=== PATIENT | female | born 1975 | race Caucasian/White ===

== ENCOUNTER 2018-05-09 17:52 | Emergency (ER) | payer BC, SELFPAY ==
--- OUTSIDE RECORDS SUMMARY | 2018-05-09 17:55 | XMS REPORT ---
:1975 [facility] Address [address] [place] [address] Dr. Price [address] [place] [id number] Care Team Providers Name Role Phone Unavailable Unavailable Unavailable Payers Payer Name Policy Type Policy Number Effective Date Expiration Date Problems This patient has no known problems. Allergies, Adverse Reactions, Alerts Allergy Allergy Status Severity Reaction(s) Onset Inactive Treating Comments Name Type Date Date Clinician colt OSUNA Active MICHELLE 2017-03 00:00:0 0 Medications This patient has no known medications.
[2018-05-09 18:34] LABS: Urine Blood NEGATIVE (NEG); Urine Glucose NEGATIVE (NEG); Urine Protein 1+ (NEG); Urine Specific Gravity 1.025 (1.005-1.030); Urine pH 6.5 (5.0-7.0)
[2018-05-09] MEDS ORDERED: cloNIDine HCl 0.1 MG TAB ONE ×2 (19:06→19:11)
[2018-05-09] MEDS ORDERED: HYDROCODONE/APAP 5/325 MG TAB ONE (19:12)
[2018-05-09 19:18] LABS: Absolute Lymphocytes (CBC) 2.5 K/uL (0.7-4.9); Absolute Monocytes 0.7 K/uL (0.1-1.3); Absolute Neutrophil 6.1 K/uL (1.8-8.0); Basophils % 0.7 % (0-1.3); Eosinophils % 1.9 % (0-4.4); Hematocrit 26.8 % (36.0-45.0); Lymphocytes % 26.2 % (15.3-44.8); MPV 8.7 fL (7.6-11.3); Monocytes % 7.8 % (3.3-12.3)
[2018-05-09 19:31] LABS: ALT/SGPT 21 U/L (12-78); AST/SGOT 20 U/L (15-37); Albumin 3.5 g/dL (3.4-5.0); Alkaline Phosphatase 73 U/L (45-117); BUN Blood Urea Nitrogen 14 mg/dL (7-18); Bicarbonate 25 mmol/L (21-32); Bilirubin Total 0.3 mg/dL (0.2-1.0); Glucose Level 95 mg/dL (74-106); Potassium 4.4 mmol/L (3.5-5.1); Protein, Total 7.3 g/dL (6.4-8.2); Sodium Level 140 mmol/L (136-145)
--- NOTE | 2018-05-09 20:10 | ER ---
Nurse's Notes [facility] Name: Kari Ansari Age: 42 yrs Sex: Female : 1975 Arrival Date: 05/09/2018 Time: 17:55 Bed 23 Private MD: Diagnosis: Urinary tract infection, site not specified;Anemia Presentation: 05/09 17:59 Presenting complaint: Patient states: FERREIRA, back pain, urinary frequency for 2 days. la1 Transition of care: patient was not received from another setting of care. Onset of symptoms was May 07, 2018. Risk Assessment: Do you want to hurt yourself or someone else? Patient reports no desire to harm self or others. Initial Sepsis Screen: Does the patient meet any 2 criteria? No. Patient's initial sepsis screen is negative. Does the patient have a suspected source of infection? No. Patient's initial sepsis screen is negative. Care prior to arrival: None. 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 - Social history:: Smoking status: Patient/guardian denies using tobacco. - Ebola Screening: : No symptoms or risks identified at this time. Screenin:13 Abuse screen: Denies threats or abuse. Denies injuries from another. Nutritional aj1 screening: No deficits noted. Tuberculosis screening: No symptoms or risk factors identified. 20:49 Fall Risk None identified. aj1 Assessment: 18:13 General: Appears in no apparent distress. uncomfortable, Behavior is calm, cooperative, aj1 appropriate for age. Pain: Complains of pain in forehead and low back area Pain does not radiate. Pain currently is 8 out of 10 on a pain scale. Quality of pain is described as aching. Neuro: Level of Consciousness is awake, alert, obeys commands, Oriented to person, place, time, situation. Cardiovascular: Patient's skin is warm and dry. Respiratory: Airway is patent Respiratory effort is even, unlabored, Respiratory pattern is regular, symmetrical. GI: No signs and/or symptoms were reported involving the gastrointestinal system. : Reports burning with urination, urinary frequency. EENT: No signs and/or symptoms were reported regarding the EENT system. Derm: No signs and/or symptoms reported regarding the dermatologic system. Skin is pink, warm \T\ dry. normal. Musculoskeletal: No signs and/or symptoms reported regarding the musculoskeletal system. Circulation, motion, and sensation intact. 19:00 Reassessment: Patient states that the pain in her lower back is getting worse. Notified aj1 MARIE Durán, Order recieved. 19:18 Reassessment: Patient appears in no apparent distress at this time. No changes from aj1 previously documented assessment. Patient and/or family updated on plan of care and expected duration. Pain level reassessed. Patient is alert, oriented x 3, equal unlabored respirations, skin warm/dry/pink. 20:25 Reassessment: Patient states that she is concerned about her blood levels and she would aj like to speak with Jordon again about her results. Notified MARIE Durán of patient request. 20:30 Reassessment: MARIE Durán at bedside Patient denies pain at this time. aj Vital Signs: 18:00 BP 174 / 103; Pulse 100; Resp 18; Temp 97.4; Pulse Ox 98% on R/A; Weight 99.79 kg; la1 Height 5 ft. 7 in. (170.18 cm); 19:18 BP 149 / 93; Pulse 88; Resp 18; Pulse Ox 98% on R/A; aj1 20:30 BP 159 / 97; Pulse 80; Resp 18; Pulse Ox 100% on R/A; aj1 18:00 Body Mass Index 34.46 (99.79 kg, 170.18 cm) pa1 ED Course: 17:55 Patient arrived in ED. mr 17:59 Triage completed. la1 18:01 Arm band placed on left wrist. la1 18:03 Danette Davis, SIENNA is Primary Nurse. aj1 18:05 Jordon Joyce PA is PHCP. [facility] 18:05 Adrián Beckford MD is Attending Physician. [facility] 18:13 Patient has correct armband on for positive identification. Bed in low position. Call aj light in reach. 18:13 No provider procedures requiring assistance completed. aj1 19:22 Notified Nurse Practitioner and/or Physician Impression Printer of a critical lab result(s), fc hemoglobin of 7.9. 20:49 Patient did not have IV access during this emergency room visit. aj1 Administered Medications: 19:00 Drug: cloNIDine 0.1 mg Route: PO; aj1 20:31 Follow up: Response: No adverse reaction aj1 19:09 Drug: [place] 5 mg-325 mg 1 tabs Route: PO; aj1 20:31 Follow up: Response: No adverse reaction aj1 Outcome: 20:10 Discharge ordered by . romulo 20:49 Discharged to home ambulatory. aj1 20:49 Condition: good 20:49 Discharge instructions given to patient, family, Instructed on discharge instructions, follow up and referral plans. medication usage, Demonstrated understanding of instructions, follow-up care, medications, Prescriptions given X 1. 20:49 Patient left the ED. aj1 Signatures: Danette Davis RN RN aj1 Jordon Joyce PA PA jmm Rivera, Mary mr Jennifer Danielson RN RN Kimani Bartholomew RN RN la1
--- NOTE | 2018-05-09 20:11 | EDPHYS ---
Physician Documentation [facility] Name: Kari Ansari Age: 42 yrs Sex: Female : 1975 Arrival Date: 05/09/2018 Time: 17:55 Bed 23 Private MD: ED Physician Adrián Beckford HPI: 05/09 18:16 This 42 yrs old Female presents to ER via Ambulatory with complaints of Back jmm Pain, High Blood Pressure. 18:16 The patient presents with pain that is acute, with no known mechanism of injury. Onset: jmm The symptoms/episode began/occurred gradually, 2 day(s) ago. The pain does not radiate. Associated signs and symptoms: Pertinent positives: dysuria. This is a 42 year old female with a history of anemia, hypertension presents to the ED with complaints of a frontal headache, elevated blood pressure, low back pain and painful urination beginning approx 2 days ago. Patient denies fever. The patient states the headache is similar in character to previous headaches with elevated blood pressure. Patient is currently taking losartan and clonidine for htn. Patient denies chest pain, abdominal pain, shortness of breath. . 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 - Social history:: Smoking status: Patient/guardian denies using tobacco. - Ebola Screening: : No symptoms or risks identified at this time. ROS: 18:16 Constitutional: Negative for fever, chills, and weight loss, Cardiovascular: Negative jmm for chest pain, palpitations, and edema, Respiratory: Negative for shortness of breath, cough, wheezing, and pleuritic chest pain, Abdomen/GI: Negative for abdominal pain, nausea, vomiting, diarrhea, and constipation. 18:16 Back: Positive for pain at rest. 18:16 Neuro: Positive for headache. 18:16 All other systems are negative. Exam: 18:16 Constitutional: This is a well developed, well nourished patient who is awake, alert, jmm and in no acute distress. Head/Face: atraumatic. Eyes: EOMI, no conjunctival erythema appreciated ENT: Moist Mucus Membranes Neck: Trachea midline, Supple Chest/axilla: Normal chest wall appearance and motion. 18:16 Abdomen/GI: Non distended, soft Back: Normal ROM 18:16 Cardiovascular: Rate: normal, Rhythm: regular. 18:16 Respiratory: the patient does not display signs of respiratory distress, Respirations: normal. 18:16 Neuro: Orientation: is normal, Mentation: is normal, Memory: is normal, Cerebellar function: normal finger to nose testing, Motor: is normal. 18:16 Psych: Behavior/mood is pleasant, cooperative. Vital Signs: 18:00 BP 174 / 103; Pulse 100; Resp 18; Temp 97.4; Pulse Ox 98% on R/A; Weight 99.79 kg; la1 Height 5 ft. 7 in. (170.18 cm); 19:18 BP 149 / 93; Pulse 88; Resp 18; Pulse Ox 98% on R/A; aj1 20:30 BP 159 / 97; Pulse 80; Resp 18; Pulse Ox 100% on R/A; aj1 18:00 Body Mass Index 34.46 (99.79 kg, 170.18 cm) la1 MDM: 18:16 Patient medically screened. [facility] 20:08 Data reviewed: vital signs, nurses notes. Counseling: I had a detailed discussion with [facility] the patient and/or guardian regarding: the historical points, exam findings, and any diagnostic results supporting the discharge/admit diagnosis, lab results, the need for outpatient follow up, to return to the emergency department if symptoms worsen or persist or if there are any questions or concerns that arise at home. ED course: HGB is normal level per patient. Patient denies sob, weakness. Patient states she feels much better in the ED. I discussed with the patient the need to follow up with PCP regarding htn and anemia. FERREIRA is similar to previous episodes of htn, I do not suspect SAH at this time. . 05/09 18:17 Order name: CBC with Diff [facility] 05/09 18:17 Order name: CMP; Complete Time: 19:41 [facility] 05/09 18:26 Order name: Urine Dipstick--Ancillary (enter results) 05/09 18:26 Order name: Urine --Ancillary (enter results) 05/09 18:27 Order name: Troponin (emerg Dept Use Only); Complete Time: 19:41 [facility] 05/09 19:23 Order name: CBC Smear Scan [facility] 05/09 18:17 Order name: Urine Dipstick-Ancillary (obtain specimen); Complete Time: 18:22 [facility] 05/09 18:27 Order name: EKG - Nurse/Tech; Complete Time: 18:50 [facility] Administered Medications: 19:00 Drug: cloNIDine 0.1 mg Route: PO; aj1 20:31 Follow up: Response: No adverse reaction [facility] 19:09 Drug: [place] 5 mg-325 mg 1 tabs Route: PO; aj1 20:31 Follow up: Response: No adverse reaction [facility] Disposition: 05/09/18 20:10 Discharged to Home. Impression: Urinary tract infection, site not specified, Anemia. - Condition is Stable. - Discharge Instructions: Anemia, Nonspecific, Urinary Tract Infection, Adult. - Prescriptions for Keflex 500 mg Oral Capsule - take 1 capsule by ORAL route every 12 hours for 10 days; 20 capsule. - Medication Reconciliation Form, Thank You Letter, Antibiotic Education, Prescription Opioid Use form. - Follow up: Private Physician; When: 2 - 3 days; Reason: Recheck today's complaints, Continuance of care, Re-evaluation by your physician. Addendum: 05/11/2018 20:00 Co-signature as Attending Physician, Adráin Beckford MD. r n Signatures: Dispatcher [employer] [facility] Danette Davis RN RN aj1 Jordon Joyce PA PA [facility] Adrián Beckford MD MD rn Attema, Lee RN RN la1 Corrections: (The following items were deleted from the chart) 05/09 20:49 20:10 05/09/2018 20:10 Discharged to Home. Impression: Urinary tract infection, site aj1 not specified; Anemia. Condition is Stable. Forms are Medication Reconciliation Form, Thank You Letter, Antibiotic Education, Prescription Opioid Use. Follow up: Private Physician; When: 2 - 3 days; Reason: Recheck today's complaints, Continuance of care, Re-evaluation by your physician. [facility]
[2018-05-09 21:30] LABS: Urine White Blood Cell Casts OK
[2018-05-09 21:31] LABS: Platelet Estimate ADEQ
[2018-05-09 21:32] LABS: Anisocytosis 1+; Blood Morphology Comment NOTED (NOT SEEN); Hypochromasia 2+; Ovalocytes 1+
--- NOTE | 2018-05-10 20:52 | EKG ---
Test Date: 2018-05-09 Test Time: 18:43:53 Game Warden: THIEN MEASUREMENT RESULTS: Intervals: Rate: 89 AZ: 144 QRSD: 86 QT: 362 QTc: 440 Williams: P: 21 AZ: 144 QRS: 4 T: 56 INTERPRETIVE STATEMENTS: Normal sinus rhythm Normal ECG No previous ECG available for comparison Electronically Signed On 05-10-18 20:48:17 CHANGE MANAGEMENT MANAGER by Yoni Chew
== END 2018-05-09 20:49 | disposition home or self-care (01) ==
LOC: ER 17:52
DX: N39.0 Urinary tract infection, site not specified (principal); D64.9 Anemia, unspecified; I10 Essential (primary) hypertension; Z91.048 Other nonmedicinal substance allergy status
CPT/HCPCS: 36415; 80053; 81003; 81025; 84484; 85025; 93005; 99283

== ENCOUNTER 2018-05-15 20:58 | Emergency (ER) | payer SELFPAY ==
--- OUTSIDE RECORDS SUMMARY | 2018-05-15 20:59 | XMS REPORT ---
:1975 [facility] Address [address] [place] [address] Dr. Price [address] [place] [address] Care Team Providers Name Role Phone Unavailable [...]
[2018-05-15] MEDS ORDERED: LABETALOL 20 MG/4ML SYRINGE IV ONE (21:43)
[2018-05-15 22:09] LABS: Protime INR 0.97
[2018-05-15 22:13] LABS: Absolute Lymphocytes (CBC) 2.6 K/uL (0.7-4.9); Absolute Monocytes 0.5 K/uL (0.1-1.3); Absolute Neutrophil 4.7 K/uL (1.8-8.0); Basophils % 0.6 % (0-1.3); Eosinophils % 1.6 % (0-4.4); Hematocrit 25.7 % (36.0-45.0); Lymphocytes % 32.2 % (15.3-44.8); MPV 7.7 fL (7.6-11.3); Monocytes % 6.3 % (3.3-12.3); RBC Red Blood Cell Count 4.23 M/uL (3.86-4.86)
[2018-05-15 22:16] LABS: ALT/SGPT 20 U/L (12-78); AST/SGOT 16 U/L (15-37); Albumin 3.7 g/dL (3.4-5.0); Alkaline Phosphatase 65 U/L (45-117); BUN Blood Urea Nitrogen 12 mg/dL (7-18); Bicarbonate 25 mmol/L (21-32); Bilirubin Direct 0.1 mg/dL (0-0.2); Bilirubin Total 0.3 mg/dL (0.2-1.0); Glucose Level 90 mg/dL (74-106); Magnesium 1.9 mg/dL (1.8-2.4); NT PRO-BNP 90 pg/mL (<125); Potassium 4.5 mmol/L (3.5-5.1); Protein, Total 7.7 g/dL (6.4-8.2); Sodium Level 141 mmol/L (136-145); Troponin (Emerg Dept Use Only) < 0.02 ng/mL (0.0-0.045)
[2018-05-15] MEDS ORDERED: KETOROLAC 30 MG/ML INJ ONE (22:30)
[2018-05-15 23:11] LABS: Anisocytosis 1+; Blood Morphology Comment NOTED (NOT SEEN); Hypochromasia 1+; Platelet Estimate INCR; Urine White Blood Cell Casts OK
[2018-05-15] MEDS ORDERED: DIPHENHYDRAMINE 50 MG/ML VIAL ONE (23:20)
[2018-05-15] MEDS ORDERED: ACETAMINOPHEN 325 MG TABLET ONE (23:20)
[2018-05-15] MEDS ORDERED: NA CHLORIDE 0.9% 250 ML ONE (23:31)
--- NOTE | 2018-05-16 00:56 | EDPHYS ---
Physician Documentation [facility] Name: Kari Ansari Age: 42 yrs Sex: Female : 1975 Arrival Date: 05/15/2018 Time: 20:59 Bed 28 Private MD: Rc Taylor ED Physician Pradeep King HPI: 05/15 21:39 This 42 yrs old Female presents to ER via Ambulatory with complaints of jr8 Syncope. 21:39 The patient has experienced syncope. Onset: The symptoms/episode began/occurred jr8 acutely, today. Duration: This was a single episode. Context: the episode(s) was witnessed, by family, occurred outdoors, occurred while the patient was standing, Just prior to the episode the patient experienced dizziness. Associated injury: Head/face: Back: pain. Associated signs and symptoms: The patient has no apparent associated signs or symptoms. Current symptoms: Currently, the patient is not experiencing any symptoms, the patient feels back to baseline, no decreased level of consciousness, no confusion, no dysphasia, no headache, no paralysis, no visual changes. The patient has not experienced similar symptoms in the past. The patient has been recently seen by a physician:. Patient with history of anemia. Stated that her hemoglobin had been decreasing over the past week. Last draw a few days ago showed a Hgb of 7.4. While walking at store became dizzy and passed out. Pain to head and low back. No longer dizzy but feels fatigued. Denies any other symptoms . 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 - Social history:: Smoking status: Patient/guardian denies using tobacco. - Ebola Screening: : No symptoms or risks identified at this time. ROS: 21:39 Eyes: Negative for injury, pain, redness, and discharge, ENT: Negative for injury, jr8 pain, and discharge, Neck: Negative for injury, pain, and swelling, Cardiovascular: Negative for chest pain, palpitations, and edema, Respiratory: Negative for shortness of breath, cough, wheezing, and pleuritic chest pain, Abdomen/GI: Negative for abdominal pain, nausea, vomiting, diarrhea, and constipation, Back: Negative for injury and pain, MS/Extremity: Negative for injury and deformity, Skin: Negative for injury, rash, and discoloration. 21:39 Constitutional: Positive for fatigue. 21:39 Neuro: Positive for dizziness, headache, loss of consciousness, syncope. Exam: 21:39 Eyes: Pupils equal round and reactive to light, extra-ocular motions intact. Lids and jr8 lashes normal. Conjunctiva and sclera are non-icteric and not injected. Cornea within normal limits. Periorbital areas with no swelling, redness, or edema. ENT: Nares patent. No nasal discharge, no septal abnormalities noted. Tympanic membranes are normal and external auditory canals are clear. Oropharynx with no redness, swelling, or masses, exudates, or evidence of obstruction, uvula midline. Mucous membranes moist. Neck: Trachea midline, no thyromegaly or masses palpated, and no cervical lymphadenopathy. Supple, full range of motion without nuchal rigidity, or vertebral point tenderness. No Meningismus. Cardiovascular: Regular rate and rhythm with a normal S1 and S2. No gallops, murmurs, or rubs. Normal PMI, no JVD. No pulse deficits. Respiratory: Lungs have equal breath sounds bilaterally, clear to auscultation and percussion. No rales, rhonchi or wheezes noted. No increased work of breathing, no retractions or nasal flaring. Abdomen/GI: Soft, non-tender, with normal bowel sounds. No distension or tympany. No guarding or rebound. No evidence of tenderness throughout. Back: No spinal tenderness. No costovertebral tenderness. Full range of motion. Skin: Warm, dry with normal turgor. Normal color with no rashes, no lesions, and no evidence of cellulitis. MS/ Extremity: Pulses equal, no cyanosis. Neurovascular intact. Full, normal range of motion. Neuro: Awake and alert, GCS 15, oriented to person, place, time, and situation. Cranial nerves II-XII grossly intact. Motor strength 5/5 in all extremities. Sensory grossly intact. Cerebellar exam normal. Normal gait. Vital Signs: 21:03 BP 199 / 105; Pulse 103; Resp 18; Temp 97.4; Pulse Ox 98% on R/A; Weight 99.79 kg; la1 Height 5 ft. 7 in. (170.18 cm); 21:45 BP 175 / 95; Pulse 98; Resp 18; Pulse Ox 100% on R/A; Pain 0/10; mg2 22:25 BP 177 / 91; Pulse 72; Resp 18; Pulse Ox 100% on R/A; Pain 5/10; mg2 23:00 BP 144 / 78; Pulse 80; Resp 18; Pulse Ox 100% on R/A; Pain 0/10; mg2 23:00 BP 161 / 84; Pulse 72; Resp 18; Pulse Ox 100% on R/A; Pain 0/10; mg2 02 00:38 BP 130 / 51; Pulse 75; Resp 18; Pulse Ox 100% on R/A; Pain 5/10; mg2 05/15 21:03 Body Mass Index 34.46 (99.79 kg, 170.18 cm) la1 MDM: 05/15 21:04 Patient medically screened. jr8 22:38 Data reviewed: vital signs, nurses notes, lab test result(s), EKG, radiologic studies, [facility] CT scan, plain films, and as a result, I will continue to observe the patient. Data interpreted: Pulse oximetry: on room air is 100 %. Interpretation: normal. Counseling: I had a detailed discussion with the patient and/or guardian regarding: the historical points, exam findings, and any diagnostic results supporting the discharge/admit diagnosis, lab results, radiology results, the need for outpatient follow up, a family practitioner, to return to the emergency department if symptoms worsen or persist or if there are any questions or concerns that arise at home. 05/15 21:30 Order name: Basic Metabolic Panel; Complete Time: 22:19 05/15 21:30 Order name: CBC with Diff; Complete Time: 23:24 05/15 21:30 Order name: LFT's; Complete Time: 22:19 05/15 21:30 Order name: Magnesium; Complete Time: 22:19 05/15 21:30 Order name: NT PRO-BNP; Complete Time: 22:19 05/15 21:30 Order name: PT-INR; Complete Time: 22:13 05/15 21:30 Order name: Troponin (emerg Dept Use Only); Complete Time: 22:19 05/15 21:30 Order name: XRAY Chest (1 view) 05/15 21:30 Order name: TS [facility] 05/15 21:30 Order name: CT Head Brain wo Cont [facility] 05/15 21:30 Order name: Lumbar Spine (3 Views) XRAY [facility] 05/15 22:35 Order name: ABO/RH no charge; Complete Time: 22:41 [facility] 05/15 22:44 Order name: Packed RBC Leukored -1 [facility] 05/15 23:11 Order name: CBC Smear Scan; Complete Time: 23:24 [facility] 05/15 21:30 Order name: EKG; Complete Time: 21:31 [facility] 05/15 21:30 Order name: Cardiac monitoring; Complete Time: 21:50 [facility] 05/15 21:30 Order name: EKG - Nurse/Tech; Complete Time: 22:27 [facility] 05/15 21:30 Order name: IV Saline Lock; Complete Time: :50 [facility] 05/15 21:30 Order name: Labs collected and sent; Complete Time: 21:50 [facility] 05/15 21:30 Order name: O2 Per Protocol; Complete Time: :51 [facility] 05/15 21:30 Order name: O2 Sat Monitoring; Complete Time: :51 [facility] 05/15 22:42 Order name: Misc. Order: Pre medicate prior to transfusion; Complete Time: 23:28 jr Administered Medications: 21:50 Drug: Labetalol 20 mg Route: IVP; Infused Over: 2 mins; Site: left antecubital; mg2 22:25 Follow up: Response: No adverse reaction; Blood pressure is lowered mg2 22:25 Drug: TORadol 30 mg Route: IVP; Site: left antecubital; mg2 23:00 Follow up: Response: No adverse reaction; Marked relief of symptoms mg2 05/16 01:00 Drug: fentaNYL (PF) 50 mcg Route: IVP; Site: left antecubital; mg2 Point of Care Testin:13 bgl- not done mg2 Ranges: Critical Glucose Levels:Adult <50 mg/dl or >400 mg/dl <40 mg/dl or >180 mg/dl Disposition: 20:16 Co-signature as Attending Physician, Pradeep King MD. Disposition: 05/16/18 00:55 Discharged to Home. Impression: Syncope and collapse, Iron deficiency anemia. - Condition is Stable. - Discharge Instructions: Anemia, Nonspecific, Syncope, Iron Deficiency Anemia, Adult, [id number]. - Prescriptions for Ferrous Sulfate 325 mg (65 mg Iron) Oral Tablet - take 1 tablet by ORAL route every 8 hours; 90 tablet. - Medication Reconciliation Form, Thank You Letter, Antibiotic Education, Prescription Opioid Use form. - Follow up: Rc Taylor MD; When: 1 - 2 days; Reason: Recheck today's complaints, Continuance of care, Re-evaluation by your physician. - Problem is new. - Symptoms have improved. Signatures: Dispatcher [employer] EDMS Conrad Yusuf PA PA jr8 Kimani Bartholomew RN RN la1 Pradeep King MD MD gs Renard Santiago RN RN mg2 Corrections: (The following items were deleted from the chart) 01:09 00:55 05/16/2018 00:55 Discharged to Home. Impression: Syncope and collapse; Iron mg2 deficiency anemia. Condition is Stable. Forms are Medication Reconciliation Form, Thank You Letter, Antibiotic Education, Prescription Opioid Use. Follow up: Rc Taylor; When: 1 - 2 days; Reason: Recheck today's complaints, Continuance of care, Re-evaluation by your physician. Problem is new. Symptoms have improved. jr8
--- NOTE | 2018-05-16 00:56 | ER ---
Nurse's Notes [facility] Name: Kari Ansari Age: 42 yrs Sex: Female : 1975 Arrival Date: 05/15/2018 Time: 20:59 Bed 28 Private MD: Rc Taylor Diagnosis: Syncope and collapse;Iron deficiency anemia Presentation: 05/15 21:02 Presenting complaint: Patient states: I was carrying groceries in and I got dizzy and la1 passed out. My lower back and the back of my head hurt. Last time was here I was anemic. Transition of care: patient was not received from another setting of care. Onset of symptoms was May 15, 2018. Risk Assessment: Do you want to hurt yourself or someone else? Patient reports no desire to harm self or others. Initial Sepsis Screen: Does the patient meet any 2 criteria? No. Patient's initial sepsis screen is negative. Does the patient have a suspected source of infection? No. Patient's initial sepsis screen is negative. Care prior to arrival: None. 21:02 Method Of Arrival: Ambulatory la1 21:02 Acuity: LASHAUN 3 la1 AIX SYSTEM ADMINISTRATOR: 05/16 00:13 lmp unknown mg2 Historical: - Allergies: 05/15 21:03 Iodine; la1 - PMHx: 21:03 Anemia; Hypertension; la1 - Immunization history:: Adult Immunizations up to date. - Social history:: Smoking status: Patient/guardian denies using tobacco. - Ebola Screening: : No symptoms or risks identified at this time. Screenin:53 Abuse screen: Denies threats or abuse. Denies injuries from another. Nutritional mg2 screening: No deficits noted. Tuberculosis screening: No symptoms or risk factors identified. Fall Risk IV access (20 points). Assessment: 21:51 General: Appears in no apparent distress. comfortable, Behavior is calm, cooperative. mg2 Pain: Denies pain. Neuro: Level of Consciousness is awake, alert, obeys commands, Oriented to person, place, time, situation. Neuro: Reports a syncopal episode. Cardiovascular: Capillary refill < 3 seconds Patient's skin is warm and dry. Respiratory: Airway is patent Respiratory effort is even, unlabored, Respiratory pattern is regular, symmetrical. GI: No signs and/or symptoms were reported involving the gastrointestinal system. : No signs and/or symptoms were reported regarding the genitourinary system. EENT: No signs and/or symptoms were reported regarding the EENT system. Derm: Skin is intact, is healthy with good turgor, Skin is pink, warm \T\ dry. normal. Musculoskeletal: Circulation, motion, and sensation intact. Capillary refill < 3 seconds. 23:25 Cardiovascular: Rhythm is sinus rhythm. mg2 23:33 Reassessment: patient signed the informed consent for blood transfusion. patient mg2 pre-medicated with benadryl and tylenol. 23:40 Reassessment: blood transfusion started. mg2 Vital Signs: 21:03 BP 199 / 105; Pulse 103; Resp 18; Temp 97.4; Pulse Ox 98% on R/A; Weight 99.79 kg; la1 Height 5 ft. 7 in. (170.18 cm); 21:45 BP 175 / 95; Pulse 98; Resp 18; Pulse Ox 100% on R/A; Pain 0/10; mg2 22:25 BP 177 / 91; Pulse 72; Resp 18; Pulse Ox 100% on R/A; Pain 5/10; mg2 23:00 BP 144 / 78; Pulse 80; Resp 18; Pulse Ox 100% on R/A; Pain 0/10; mg2 23:00 BP 161 / 84; Pulse 72; Resp 18; Pulse Ox 100% on R/A; Pain 0/10; mg2 02/03 00:38 BP 130 / 51; Pulse 75; Resp 18; Pulse Ox 100% on R/A; Pain 5/10; mg2 02/02 21:03 Body Mass Index 34.46 (99.79 kg, 170.18 cm) la1 ED Course: 02 20:59 Patient arrived in ED. am2 20:59 Rc Taylor MD is Private Physician. am2 21:02 Triage completed. la1 21:03 Arm band placed on left wrist. la1 21:04 Conrad Yusuf PA is PHCP. jr8 21:04 Pradeep King MD is Attending Physician. jr8 21:17 Renard Santiago, SIENNA is Primary Nurse. mg2 21:53 Patient has correct armband on for positive identification. broadcast systems engineer on. Pulse mg2 ox on. NIBP on. Door closed. Warm blanket given. 21:53 No provider procedures requiring assistance completed. Inserted saline lock: 20 gauge mg2 in left antecubital area, using aseptic technique. Blood collected. 22:08 CT Head Brain wo Cont In Process Unspecified. EDMS 22:12 XRAY Chest (1 view) In Process Unspecified. EDMS 22:12 Lumbar Spine (3 Views) XRAY In Process Unspecified. EDMS 22:25 Notified ED physician of a critical lab result(s). HGB of 7.6 Conrad SALAZAR notified. liza 05/16 00:54 Rc Taylor MD is Referral Physician. jr8 01:08 IV discontinued, intact, bleeding controlled, No redness/swelling at site. Pressure mg2 dressing applied. Administered Medications: 05/15 21:50 Drug: Labetalol 20 mg Route: IVP; Infused Over: 2 mins; Site: left antecubital; mg2 22:25 Follow up: Response: No adverse reaction; Blood pressure is lowered mg2 22:25 Drug: TORadol 30 mg Route: IVP; Site: left antecubital; mg2 23:00 Follow up: Response: No adverse reaction; Marked relief of symptoms mg2 05/16 01:00 Drug: fentaNYL (PF) 50 mcg Route: IVP; Site: left antecubital; mg2 Medication: 05/15 23:58 Blood products: PRBCs X 1 unit given. mg2 Point of Care Testin/03 00:13 bgl- not done mg2 Ranges: Outcome: 00:55 Discharge ordered by . jr8 01:08 Discharged to home ambulatory, with family. mg2 01:08 Condition: stable 01:08 Discharge instructions given to patient, family, Instructed on discharge instructions, follow up and referral plans. medication usage, Demonstrated understanding of instructions, follow-up care, medications, Prescriptions given X 1. 01:09 Patient left the ED. mg2 Signatures: Dispatcher [employer] EDMS Sushila Ramírez RN RN bb Roszak, Josh, PA PA jr8 Kimani Bartholomew RN RN la1 Edwina Pratt Michele, RN RN mg2 Corrections: (The following items were deleted from the chart) 05/15 21:10 21:03 BP 199 / 105; Pulse 10bpm; Resp 18bpm; Pulse Ox 98% RA; Temp 97.4F; 99.79 kg; la1 Height 5 ft. 7 in.; BMI: 34.4; la1
[2018-05-16] MEDS ORDERED: FENTANYL CITR 100 MCG/2 ML ONE (01:05)
--- NOTE | 2018-05-16 06:19 | EKG ---
Test Date: 2018-05-15 Test Time: 22:11:00 Application Designer: MEASUREMENT RESULTS: Intervals: Rate: 71 IN: 152 QRSD: 88 QT: 392 QTc: 425 Webster: P: 30 IN: 152 QRS: 20 T: 77 INTERPRETIVE STATEMENTS: Normal sinus rhythm Normal ECG Compared to ECG 05/09/2018 18:43:53 no significant change from previous ECG Electronically Signed On 05-16-18 06:14:35 TREATER HELPER by Sunday Castillo
--- NOTE | 2018-05-16 10:48 | RAD REPORT ---
EXAM DESCRIPTION: RAD - Chest Single View - 05/15/2018 10:12 pm CLINICAL HISTORY: syncope Chest pain. COMPARISON: No comparisons FINDINGS: Portable technique limits examination quality. The lungs are grossly clear. The heart is normal in size. No displaced fractures. IMPRESSION: No acute intrathoracic process suspected.
--- NOTE | 2018-05-16 10:57 | RAD REPORT ---
EXAM DESCRIPTION: RAD - Lumbar Spine 3 Views - 05/15/2018 10:12 pm CLINICAL HISTORY: PAIN Radiculopathy COMPARISON: No comparisons FINDINGS: Vertebral body heights appear maintained. No compression fracture noted. Moderate disc thi nning with endplate osteophytes present at L5-S1. No spondylolysis or spondylolisthesis. Cholecystect luna clips. IUD noted. IMPRESSION: Moderate L5-S1 spondylosis.
--- NOTE | 2018-05-17 11:31 | RAD REPORT ---
EXAM DESCRIPTION: Head Brain Wo Cont. CLINICAL HISTORY: 42 years Female Syncope, fall injury. COMPARISON: None. TECHNIQUE: Images obtained in axial, sagittal, and coronal planes. This exam was performed according to our departmental dose-optimization program, which includes autom ated exposure control, adjustment of the mA and/or kV according to patient size and/or less of iterat troy reconstruction technique. FINDINGS: Ventricular system appears normal. No abnormal areas of increased or decreased attenuation are seen involving the brain parenchyma. No e xtra-axial fluid collections are noted. No evidence for skull fracture. Symmetric aeration mastoid air cells bilaterally. Unremarkable parana deni sinuses. IMPRESSION: No acute intracranial abnormality. No evidence for hemorrhage, mass lesion or large acut e infarction. Electronically signed by: Jenniffer Macdonald MD 05/15/2018 10:12 PM HOUSE DESIGNER Due to temporary technical issues with the PACS/Fluency reporting system, reports are being signed by the in house radiologist as a courtesy to ensure prompt reporting. The interpreting radiologist is f ully responsible for the content of the report.
== END 2018-05-16 01:09 | disposition home or self-care (01) ==
LOC: ER 20:58
PROC: 30233N1 Transfusion of Nonautologous Red Blood Cells into Peripheral Vein, Percutaneous Approach (ICD-10-PCS; principal; 2018-05-16)
DX: D50.9 Iron deficiency anemia, unspecified (principal); I10 Essential (primary) hypertension; Z91.048 Other nonmedicinal substance allergy status
CPT/HCPCS: 36415; 36430; 70450; 71045; 72100; 80048; 80076; 83735; 83880; 84484; 85025; 85610; 86850; 86900; 86901; 93005; 96374; 96375; 99285; J3010; P9016

== ENCOUNTER 2020-08-06 05:15 | Inpatient (IN) | payer SELFPAY ==
--- OUTSIDE RECORDS SUMMARY | 2020-08-06 05:18 | XMS REPORT | Continuity of Care Document ---
:1975 Author Organization [facility] t Address [address] [place] [address] [address] [place] [address] Care Team Providers Name Role Phone Unavailable Unavailable Unavailable Payers Payer Name Policy Type Policy Number Effective Date Expiration Date S ource Problems This patient has no known problems. Allergies, Adverse Reactions, Alerts Allergy Allergy Status Severity Reaction(s) Onset Inactive Treating Comm ents Source Name Type Date Date Clinician iodine DA Active SV 2016- [facility] 05-[address] [facility] 00:00: d 00 [facility] Medications This patient has no known medications. Procedures This patient has no known procedures. Results This patient has no known results.
[2020-08-06 05:54] LABS: Urine Blood Negative (Negative); Urine Glucose Negative (Negative); Urine Protein Negative (Negative); Urine Specific Gravity 1.025 (1.005-1.030)
[2020-08-06] MEDS ORDERED: MORPHINE 4 MG/ML SYR ONE (06:05)
[2020-08-06] MEDS ORDERED: NA CHLORIDE 0.9% 1,000 ML ONE (06:05)
[2020-08-06] MEDS ORDERED: ONDANSETRON 4 MG/2 ML VIAL ONE ×3 (06:05→14:31)
[2020-08-06 06:11] LABS: ALT/SGPT 56 U/L (12-78); AST/SGOT 59 U/L (15-37); Albumin 3.5 g/dL (3.4-5.0); Alkaline Phosphatase 77 U/L (45-117); BUN Blood Urea Nitrogen 11 mg/dL (7-18); Bicarbonate 24 mmol/L (21-32); Bilirubin Direct 0.2 mg/dL (0-0.2); Bilirubin Total 0.4 mg/dL (0.2-1.0); Glucose Level 85 mg/dL (74-106); Lipase 80 U/L (73-393); Potassium 4.4 mmol/L (3.5-5.1); Protein, Total 7.2 g/dL (6.4-8.2); Sodium Level 142 mmol/L (136-145)
[2020-08-06 06:45] LABS: Absolute Lymphocytes (CBC) 1.2 K/uL (0.7-4.9); Basophils % 0.4 % (0-1.3); Hematocrit 24.2 % (36.0-45.0); Lymphocytes % 10.4 % (15.3-44.8); MPV 8.8 fL (7.6-11.3); RBC Red Blood Cell Count 3.92 M/uL (3.86-4.86)
--- NOTE | 2020-08-06 07:05 | ER ---
Nurse's Notes [facility] Name: Kari Ansari Age: 44 yrs Sex: Female : 1975 Arrival Date: 08/06/2020 Time: 05:18 Bed 5 Private MD: Diagnosis: Acute appendicitis Presentation: 08/06 05:25 Chief complaint: Patient states: she started having back pain then abdominal pain then bb she started vomiting repeatedly. Coronavirus screen: At this time, the client does not indicate any symptoms associated with coronavirus-19. Ebola Screen: No symptoms or risks identified at this time. Initial Sepsis Screen: Does the patient meet any 2 criteria? No. Patient's initial sepsis screen is negative. Does the patient have a suspected source of infection? No. Patient's initial sepsis screen is negative. Risk Assessment: Do you want to hurt yourself or someone else? Patient reports no desire to harm self or others. Onset of symptoms was August 06, 2020. 05:25 Method Of Arrival: Ambulatory bb 05:25 Acuity: LASHAUN 3 bb SAFETY FIRE BOSS: 05:28 LMP 05/2020 bb Historical: - Allergies: 05:28 Iodine; bb - Home Meds: 05:28 Ambien Oral [Active]; Alprazolam Oral [Active]; bb - PMHx: 05:28 Anemia; Hypertension; Anxiety; bb - PSHx: 05:28 Gastric Bypass; Cholecystectomy; bb - Immunization history:: Adult Immunizations up to date. - Social history:: Smoking status: Patient reports the use of cigarette tobacco products, denies chronic smoking, but will smoke occasionally. Screenin:39 Abuse screen: Denies threats or abuse. Denies injuries from another. Nutritional mg2 screening: No deficits noted. Tuberculosis screening: No symptoms or risk factors identified. Fall Risk IV access (20 points). Assessment: 05:39 General: Appears in no apparent distress. comfortable, Behavior is calm, cooperative. mg2 Pain: Complains of pain in back and abdomen. Neuro: Level of Consciousness is awake, alert, obeys commands, Oriented to person, place, time, situation. Cardiovascular: Capillary refill < 3 seconds Patient's skin is warm and dry. Respiratory: Airway is patent Respiratory effort is even, unlabored, Respiratory pattern is regular, symmetrical. GI: Reports vomiting. : Reports pain in lower back. EENT: No signs and/or symptoms were reported regarding the EENT system. Derm: Skin is intact, is healthy with good turgor, Skin is pink, warm \T\ dry. normal. Musculoskeletal: Circulation, motion, and sensation intact. Capillary refill < 3 seconds. 09:00 General: Appears in no apparent distress. comfortable, Behavior is calm, cooperative, jd3 appropriate for age. Pain: Complains of pain in abdomen Quality of pain is described as aching. Neuro: Level of Consciousness is awake, alert, obeys commands, Oriented to person, place, time, situation. Cardiovascular: Denies chest pain, Capillary refill < 3 seconds Patient's skin is warm and dry. Respiratory: Airway is patent Respiratory effort is even, unlabored, Respiratory pattern is regular, symmetrical, Denies cough, shortness of breath. GI: Abdomen is round non-distended, Bowel sounds present X 4 quads. Abd is soft and non tender X 4 quads. : No signs and/or symptoms were reported regarding the genitourinary system. EENT: No signs and/or symptoms were reported regarding the EENT system. Derm: Skin is intact, Skin is dry, Skin is normal, Skin temperature is warm. Musculoskeletal: Circulation, motion, and sensation intact. Range of motion: intact in all extremities. 09:02 Reassessment: Lab recollect obtained from existing IV site. 8 mL blood wasted prior to sr5 sample collection, flushed with 10mL NS afterwards. Pt awake and talkative, call light at bedside. 11:37 Reassessment: Patient appears in no apparent distress at this time. Patient and/or jd3 family updated on plan of care and expected duration. Pain level reassessed. Patient is alert, oriented x 3, equal unlabored respirations, skin warm/dry/pink. to surgery with OR nurse. Vital Signs: 05:25 BP 170 / 91; Pulse 79; Resp 18 S; Temp 97.7(TE); Pulse Ox 100% on R/A; Weight 80.74 kg bb (R); Height 5 ft. 6 in. (167.64 cm) (R); Pain 9/10; 09:02 BP 144 / 86; Pulse 81; Resp 16; Pulse Ox 99% ; ld1 09:44 BP 134 / 70; Pulse 73; Resp 17 S; Pulse Ox 99% on R/A; jd3 11:37 BP 152 / 82; Pulse 71; Resp 16 S; Pulse Ox 99% on R/A; jd3 05:25 Body Mass Index 28.73 (80.74 kg, 167.64 cm) bb ED Course: 05:18 Patient arrived in ED. bp1 05:27 Triage completed. bb 05:28 Arm band placed on Patient placed in an exam room, on a stretcher, on pulse oximetry. bb 05:29 Martin Philippe MD is Attending Physician. mh7 05:31 Renard Santiago, SIENNA is Primary Nurse. mg2 05:40 Patient has correct armband on for positive identification. mg2 05:40 No provider procedures requiring assistance completed. mg2 05:40 Missed attempt(s): 22 gauge in left forearm. Bleeding controlled, band aid applied, ds4 catheter tip intact. 05:55 Inserted saline lock: 22 gauge in left antecubital area, using aseptic technique. Blood mg2 collected. 06:15 CT Stone Protocol In Process Unspecified. EDMS 07:04 Rc Taylor MD is Hospitalizing Provider. mh7 11:59 Patient admitted, IV remains in place. jd3 Administered Medications: 05:56 Drug: Zofran (Ondansetron) 4 mg Route: IVP; Site: left antecubital; mg2 07:00 Follow up: Response: No adverse reaction jd3 05:57 Drug: NS 0.9% 1000 ml Route: IV; Rate: 1000 ml; Site: left antecubital; mg2 07:00 Follow up: Response: No adverse reaction; IV Status: Completed infusion; IV Intake: jd3 1000ml 05:57 Drug: morphine 4 mg Route: IVP; Site: left antecubital; mg2 07:00 Follow up: Response: No adverse reaction; RASS: Alert and Calm (0) jd3 07:46 Drug: Zosyn (piperacillin-tazobactam) 3.375 grams Route: IVPB; Infused Over: 60 mins; ld1 Site: left antecubital; 09:03 Follow up: IV Status: Completed infusion; IV Intake: 100ml sr5 07:47 Drug: Dilaudid (HYDROmorphone) 1 mg Route: IVP; Site: left antecubital; ld1 08:40 Follow up: Response: No adverse reaction; RASS: Alert and Calm (0) jd3 Intake: 07:00 IV: 1000ml; Total: 1000ml. jd3 09:03 IV: 100ml; Total: 1100ml. sr5 Outcome: 07:05 Decision to Hospitalize by Provider. [facility] 11:59 Admitted to OR accompanied by nurse, via wheelchair, room OR pre-op/day surgery. jd3 11:59 Condition: stable 11:59 Instructed on the need for admit, Demonstrated understanding of instructions. 11:59 Patient left the ED. j Signatures: Dispatcher [employer] EDSushila Reyes, RN RN bb Erick Lorenz ds4 Benson Figueroa RN RN sr5 Zach Astorga RN RN jd3 Renard Santiago RN RN mg2 Delmi Patiño Maurice, MD MD 7 Adeola Solomon RN RN ld1
--- NOTE | 2020-08-06 07:06 | EDPHYS ---
Physician Documentation [facility] Name: Kari Ansari Age: 44 yrs Sex: Female : 1975 Arrival Date: 08/06/2020 Time: 05:18 Bed 5 Private MD: ED Physician Martin Philippe HPI: 08/06 05:44 This 44 yrs old Female presents to ER via Ambulatory with complaints of Low mh7 Back Pain, Vomiting, Abdominal Pain. 05:44 The patient complains of pain in the left flank. The pain radiates to the left lower mh7 abdomen. Onset: The symptoms/episode began/occurred this morning, today. Modifying factors: The symptoms are alleviated by nothing. the symptoms are aggravated by nothing. Associated signs and symptoms: Pertinent positives: dysuria, nausea, vomiting, Pertinent negatives: diarrhea, dizziness, fever, urinary frequency, headache, hematuria, pain radiating to the lower extremities. Severity of pain: At its worst the pain was moderate today, in the emergency department the pain is unchanged. DRAWER IN: 05:28 LMP 05/2020 bb Historical: - Allergies: 05:28 Iodine; bb - Home Meds: 05:28 Ambien Oral [Active]; Alprazolam Oral [Active]; bb - PMHx: 05:28 Anemia; Hypertension; Anxiety; bb - PSHx: 05:28 Gastric Bypass; Cholecystectomy; bb - Immunization history:: Adult Immunizations up to date. - Social history:: Smoking status: Patient reports the use of cigarette tobacco products, denies chronic smoking, but will smoke occasionally. ROS: 05:44 Constitutional: Negative for fever, chills, and weight loss, Eyes: Negative for injury, mh7 pain, redness, and discharge, ENT: Negative for injury, pain, and discharge, Neck: Negative for injury, pain, and swelling, Cardiovascular: Negative for chest pain, palpitations, and edema, Respiratory: Negative for shortness of breath, cough, wheezing, and pleuritic chest pain, MS/Extremity: Negative for injury and deformity, Skin: Negative for injury, rash, and discoloration, Neuro: Negative for headache, weakness, numbness, tingling, and seizure, Psych: Negative for depression, anxiety, suicide ideation, homicidal ideation, and hallucinations, Allergy/Immunology: Negative for hives, rash, and allergies, Endocrine: Negative for neck swelling, polydipsia, polyuria, polyphagia, and marked weight changes, Hematologic/Lymphatic: Negative for swollen nodes, abnormal bleeding, and unusual bruising. Exam: 05:44 Constitutional: This is a well developed, well nourished patient who is awake, alert, mh7 and in no acute distress. Head/Face: Normocephalic, atraumatic. Eyes: Pupils equal round and reactive to light, extra-ocular motions intact. Lids and lashes normal. Conjunctiva and sclera are non-icteric and not injected. Cornea within normal limits. Periorbital areas with no swelling, redness, or edema. Neck: Trachea midline, no thyromegaly or masses palpated, and no cervical lymphadenopathy. Supple, full range of motion without nuchal rigidity, or vertebral point tenderness. No Meningismus. Chest/axilla: Normal chest wall appearance and motion. Nontender with no deformity. No lesions are appreciated. Cardiovascular: Regular rate and rhythm with a normal S1 and S2. No gallops, murmurs, or rubs. Normal PMI, no JVD. No pulse deficits. Respiratory: Lungs have equal breath sounds bilaterally, clear to auscultation and percussion. No rales, rhonchi or wheezes noted. No increased work of breathing, no retractions or nasal flaring. 05:44 Skin: Warm, dry with normal turgor. Normal color with no rashes, no lesions, and no evidence of cellulitis. MS/ Extremity: Pulses equal, no cyanosis. Neurovascular intact. Full, normal range of motion. Neuro: Awake and alert, GCS 15, oriented to person, place, time, and situation. Cranial nerves II-XII grossly intact. Motor strength 5/5 in all extremities. Sensory grossly intact. Cerebellar exam normal. Normal gait. Psych: Awake, alert, with orientation to person, place and time. Behavior, mood, and affect are within normal limits. 05:44 Abdomen/GI: Inspection: abdomen appears normal, Bowel sounds: normal, in all quadrants, Palpation: mild abdominal tenderness, in the left lower quadrant, mass, is not appreciated, rebound tenderness, is not appreciated, voluntary guarding, is not appreciated, involuntary guarding, is not appreciated, no appreciated organomegaly, Rectal exam: the exam is deferred, because of patient request, Indicators: McBurney's point is not tender, Garcia's sign is negative, Rovsing's sign is negative, Obturator sign is negative, Psoas sign is negative, Liver: no appreciated palpable abnormalities, Hernia: not appreciated. 05:44 Back: normal spinal alignment noted, CVA tenderness, that is mild, is noted on the left, vertebral tenderness, is not appreciated, muscle spasm, is not present. 07:20 Abdomen/GI: Palpation: moderate abdominal tenderness, in the right lower quadrant. [facility] 07:59 ECG was reviewed by the Attending Physician. [facility] Vital Signs: 05:25 BP 170 / 91; Pulse 79; Resp 18 S; Temp 97.7(TE); Pulse Ox 100% on R/A; Weight 80.74 kg bb (R); Height 5 ft. 6 in. (167.64 cm) (R); Pain 9/10; 09:02 BP 144 / 86; Pulse 81; Resp 16; Pulse Ox 99% ; ld1 09:44 BP 134 / 70; Pulse 73; Resp 17 S; Pulse Ox 99% on R/A; jd3 11:37 BP 152 / 82; Pulse 71; Resp 16 S; Pulse Ox 99% on R/A; jd3 05:25 Body Mass Index 28.73 (80.74 kg, 167.64 cm) bb MDM: 07:02 Differential diagnosis: nephrolithiasis, pyelonephritis, UTI, diverticulitis. Data [facility] reviewed: vital signs, nurses notes, lab test result(s), CBC, electrolytes, urinalysis, radiologic studies, CT scan. Data interpreted: Pulse oximetry: on room air is 100 %. Interpretation: normal. Counseling: I had a detailed discussion with the patient and/or guardian regarding: the historical points, exam findings, and any diagnostic results supporting the discharge/admit diagnosis, the presence of at least one elevated blood pressure reading (>120/80) during this emergency department visit, lab results, radiology results, the need for further work-up and treatment in the hospital. Response to treatment: the patient's symptoms have mildly improved after treatment. 07:05 Patient medically screened. 7 07:21 Physician consultation: Kemal Monique MD was called at 07:00. [facility] 08/06 05:31 Order name: Basic Metabolic Panel; Complete Time: 06:14 mg2 08/06 05:31 Order name: CBC with Diff [facility] 08/06 05:31 Order name: Hepatic Function; Complete Time: 06:14 [facility] 08/06 05:31 Order name: Lipase; Complete Time: 06:14 [facility] 08/06 05:54 Order name: Urine Dipstick-Ancillary; Complete Time: 06:09 [facility] 08/06 06:00 Order name: Urine --Ancillary (enter results) tt3 08/06 07:06 Order name: Type And Screen [facility] 08/06 07:06 Order name: Protime (+inr) [facility] 08/06 07:06 Order name: Ptt, Activated [facility] 08/06 08:15 Order name: COVID-19 : Document "Date of Symptom Onset" if Symptomatic. aa5 08/06 08:25 Order name: Manual Differential [facility] 08/06 05:31 Order name: IV Saline Lock; Complete Time: 05:58 [facility] 08/06 05:31 Order name: Labs collected and sent; Complete Time: 05:42 [facility] 08/06 05:43 Order name: Urine Dipstick-Ancillary (obtain specimen); Complete Time: 05:54 [facility] 08/06 05:43 Order name: Urine Test (obtain specimen); Complete Time: 05:54 [facility] 08/06 05:44 Order name: CT Stone Protocol [facility] 08/06 07:06 Order name: EKG - Nurse/Tech; Complete Time: 07:47 [facility] 08/06 07:19 Order name: CONS Physician Consult [facility] 08/06 07:19 Order name: NPO [facility] 08/06 08:15 Order name: Labs - recollect needed: recollect blue tube; Complete Time: 09:04 bd 08/06 08:47 Order name: CORONAVIRUS [facility] 08/06 10:09 Order name: SARS-COV-2 RT PCR EDTN EC:59 Rate is 82 beats/min. Rhythm is regular. QRS [place] is Normal. ID interval is normal. QRS morgan interval is normal. QT interval is normal. No Q waves. T waves are Normal. No ST changes noted. Clinical impression: Normal ECG and No evidence of ischemia. Interpreted by me. Reviewed by me. Administered Medications: 05:56 Drug: Zofran (Ondansetron) 4 mg Route: IVP; Site: left antecubital; mg2 07:00 Follow up: Response: No adverse reaction jd3 05:57 Drug: NS 0.9% 1000 ml Route: IV; Rate: 1000 ml; Site: left antecubital; mg2 07:00 Follow up: Response: No adverse reaction; IV Status: Completed infusion; IV Intake: jd3 1000ml 05:57 Drug: morphine 4 mg Route: IVP; Site: left antecubital; mg2 07:00 Follow up: Response: No adverse reaction; RASS: Alert and Calm (0) jd3 07:46 Drug: Zosyn (piperacillin-tazobactam) 3.375 grams Route: IVPB; Infused Over: 60 mins; ld1 Site: left antecubital; 09:03 Follow up: IV Status: Completed infusion; IV Intake: 100ml sr5 07:47 Drug: Dilaudid (HYDROmorphone) 1 mg Route: IVP; Site: left antecubital; ld1 08:40 Follow up: Response: No adverse reaction; RASS: Alert and Calm (0) jd3 Disposition: 08/06/20 07:05 Hospitalization ordered by Rc Taylor for Inpatient Admission. Preliminary diagnosis is Acute appendicitis. - Bed requested for Telemetry/MedSurg (Inpatient). - Status is Inpatient Admission. jd3 - Condition is Stable. - Problem is new. - Symptoms have improved. Signatures: Dispatcher [employer] EDTN Elizabeth Plummer Corey, MD MD cha Ballard, Brenda, RN RN Zach Chacko RN RN jd3 Renard Santiago RN RN mg2 Holmes, Maurice, MD MD 7 Adeola Solomon RN RN ld1 Benson Figueroa RN sr5 Corrections: (The following items were deleted from the chart) 06:01 05:55 Urine Microscopic Only ordered. EDTN EDMS 06:01 06:01 URINE --ANCILLARY+UC.LAB.BRZ ordered. EDTN EDMS 11:59 07:05 Hospitalization Ordered by Rc Taylor MD for Inpatient Admission. Preliminary jd3 diagnosis is Acute appendicitis. Bed requested for Telemetry/MedSurg (Inpatient). Status is Inpatient Admission. Condition is Stable. Problem is new. Symptoms have improved. 7
[2020-08-06] MEDS ORDERED: ONDANSETRON 4 MG/2 ML VIAL IV PRN (07:11)
[2020-08-06] MEDS ORDERED: D5 0.45 NS 1,000 ML IV SCH (08:00)
[2020-08-06 08:24] LABS: Anisocytosis 2+; Blood Morphology Comment NOTED (NOT SEEN); Hypochromasia 2+; Platelet Estimate ADEQ
[2020-08-06 08:28] LABS: Urine Specific Gravity/Preg 1.025 (1.005-1.030)
[2020-08-06] MEDS ORDERED: PIPER/TAZO/NS 3.375gm 3.375 GM/100 ML BAG IVPB SCH (09:00)
[2020-08-06 09:18] LABS: Protime INR 1.09
--- NOTE | 2020-08-06 10:33 | RAD REPORT ---
EXAM DESCRIPTION: ADDENDUM #1 THIS REPORT CONTAINS FINDINGS THAT MAY BE CRITICAL TO PATIENT CARE: The findings were verbally discu ssed via telephone conference with Dr. Philippe 6:54 AM central time August 06, 2020. The results were acknowledged and understood. Electronically signed by: Jennifer Dash MD 08/06/2020 6:55 AM CDT End of Addendum EXAM: CT Abdomen and Pelvis Without Intravenous Contrast CLINICAL HISTORY: The patient is 44 years old and is Female; Abd pain;Flank pain TECHNIQUE: Axial computed tomography images of the abdomen and pelvis without intravenous contrast. Sagittal and coronal reformatted images were created and reviewed. This CT exam was performed usi ng one or more of the following dose reduction techniques: automated exposure control, adjustment o f the mA and/or kV according to patient size, and/or use of iterative reconstruction technique. COMPARISON: No relevant prior studies available. FINDINGS: Lung bases: Unremarkable. No mass. No consolidation. Heart: Cardiomegaly. ABDOMEN: Liver: Enlarged fatty liver. Gallbladder and bile ducts: Cholecystectomy without choledocholithiasis. No ductal dilation. Pancreas: Unremarkable. No ductal dilation. Spleen: Unremarkable. No splenomegaly. Adrenals: Unremarkable. No mass. Kidneys and ureters: Bilateral nephrolithiasis. No hydronephrosis or ureter stone. Stomach and bowel: Previous gastric bypass. No bowel dilatation or obstruction. No bowel wall th ickening. PELVIS: Appendix: Appendix is 8 mm in diameter with periappendiceal stranding. Bladder: Bladder is empty. No stones. Reproductive: IUD in the uterus, though rotated in orientation. No adnexal mass. ABDOMEN and PELVIS: Intraperitoneal space: Unremarkable. No free air. No significant fluid collection. Bones/joints: L5-S1 degenerative disc disease. No acute fracture. No dislocation. Soft tissues: Unremarkable. Vasculature: Unremarkable. No abdominal aortic aneurysm. Lymph nodes: No pathologically enlarged lymph nodes. IMPRESSION: 1. Appendix is 8 mm in diameter with periappendiceal stranding. Correlate clinically f or early acute appendicitis. 2. Bilateral nephrolithiasis. No hydronephrosis or ureter stone. 3. Enlarged fatty liver. 4. Cholecystectomy. Gastric bypass. Electronically signed by: Jennifer Dash MD 08/06/2020 6:41 AM CDT Due to temporary technical issues with the PACS/Fluency reporting system, reports are being signed by the in house radiologist without review as a courtesy to ensure prompt reporting. The interpreting r adiologist is fully responsible for the content of the report.
[2020-08-06] MEDS ORDERED: ACETAMINOPHEN 500 MG TAB ONE (10:50)
[2020-08-06] MEDS ORDERED: CELECOXIB 100 MG CAPSULE ONE (10:51)
[2020-08-06] MEDS ORDERED: Ringers Lactate 1,000 ML IV ONE ×2 (12:01→15:55)
[2020-08-06] MEDS ORDERED: LIDOCAINE 2% MPF 5 ML VIAL ONE (13:02)
[2020-08-06] MEDS ORDERED: FENTANYL CITR 100 MCG/2 ML ONE ×2 (13:02→13:35)
[2020-08-06] MEDS ORDERED: propofoL 200 MG/20 ML VIAL IV ONE (13:02)
[2020-08-06] MEDS ORDERED: MIDAZOLAM HCL 2 MG/2 ML INJ ONE (13:02)
[2020-08-06] MEDS ORDERED: ROCURONIUM 50 MG/5 ML VIAL IV ONE (13:03)
[2020-08-06] MEDS ORDERED: GLYCOPYRROLATE 0.2 MG/ML SYR ONE (13:03)
--- NOTE | 2020-08-06 13:26 | P.BOP ---
Preoperative diagnosis: acute appendicitis Postoperative diagnosis: same Primary procedure: Laparoscopic appendectomy Loan Documents Closer: MARIAN HUYNH (TOBACCO DIPPER) Estimated blood loss: <10cc Specimen: nury Findings: acute appendicitis Anesthesia: General (s) Complications: None Transferred to: Recovery Room Condition: Good
[2020-08-06] MEDS ORDERED: NEOSTIGMINE 1 MG/ML -5 ML ONE (13:27)
[2020-08-06] MEDS ORDERED: dexAMETHasone 10 MG/ML VIAL ONE (13:37)
[2020-08-06 13:48] VITALS: O2SAT 100
[2020-08-06] MEDS ORDERED: KETOROLAC 30 MG/ML INJ ONE (14:00)
[2020-08-06] MEDS: HYDROMORPHONE HCL 1 MG/ML INJ ONE ×2 (14:10→14:15)
[2020-08-06] MEDS ORDERED: MEPERIDINE HCL 25 MG/ML SYR ONE (14:37)
[2020-08-06 16:44] VITALS: BMI 28.7
--- NOTE | 2020-08-06 17:34 | CON ---
Date of Consultation: 08/06/2020 Diagnoses: Acute appendicitis, right lower quadrant abdominal pain. History Of Present Illness: This is the case of a 44-year-old patient. She stated that started with periumbilical right lower quadrant pain since early this morning. She does not remember eating any of the usual. She denies any dysuria, hematuria, hematochezia, melena. Denies any recent traveling out of the country. Denies any family member sick at home. She has history of chronic anemia. Has history of gastric bypass about 12 years ago. The pain is constant in right lower quadrant. She cam e to the ER and diagnosed with acute appendicitis and a surgical consult was obtained. Past Surgical History: Includes Agnes-en-Y gastric bypass about 12 years ago as per the patient, no c omplications. The patient also has history of cholecystectomy. Past Medical History: Includes chronic anemia, hypertension, anxiety. Medications: Include Ambien, alprazolam. Allergies: IODINE IV. Review of Systems: See H and P. Ten points otherwise unremarkable. Physical Examination: General: The patient is awake, alert. HEENT: Pupils are equal and reactive. Anicteric. Neck: Supple. Chest: Clear. Abdomen: Right lower quadrant tenderness. Rovsing sign positive. Psoas sign positive. Garcia sign negative. Extremities: Good capillary refill. Rectal: Deferred. Breasts: Deferred. Pelvic: Deferred. Laboratory Data: Blood work shows WBC count of 11 with hemoglobin of 7.1 and platelets of 325. INR is 1.09. Chloride is 110. AST is 59. CAT scan of the abdomen and pelvis interpreted by Dr. Ledesma as bilateral kidney stones. Also, the patient has an increased large appendix with periappendiceal str anding consistent with acute appendicitis. Assessment: It is a 44-year-old patient with acute appendicitis. Benefits, alternatives, and risks of laparoscopic possible open appendectomy were fully explained which include, but not limited to inf ection, bleeding, damage to adjacent structures, anesthesia complication, negative appendix, WA, and even . She also understands this may not relieve any symptoms. She might need more than one izaguirre rgical intervention. She understood, signed a consent. The patient was immediately booked in OR. CELINA/MARCEL Voice ID: [id number] Report ID: [id number]
[2020-08-06] MEDS: PIPER/TAZO/NS 3.375gm 3.375 GM/100 ML BAG IVPB SCH (18:50)
[2020-08-06] MEDS: D5 0.45 NS 1,000 ML IV SCH (18:50)
[2020-08-06] MEDS: HYDROMORPHONE HCL 1 MG/ML INJ IV PRN ×2 (18:56→23:15)
--- NOTE | 2020-08-06 18:58 | OP ---
Date of Procedure: 08/06/2020 Surgeon: Kemal Monique MD Preoperative Diagnosis: Acute appendicitis. Postoperative Diagnosis: Acute appendicitis. Procedure: Laparoscopic appendectomy. Anesthesia: General plus local. Complications: None. Finding: Acute appendicitis. Indication: This is the case of a 44-year-old patient with above diagnosis. Fully explained the malina efits, alternatives, and risks of laparoscopic possible open appendectomy, which include, but not monterroso ited to infection, bleeding, damage to adjacent structures, anesthesia complication, NM, and even zach th. She also understands this may not relieve any symptoms. She might need more than one surgical i ntervention. She understood, signed a consent. Procedure In Detail: The patient was brought to the operating room, placed in supine position. Anes thesia was done without complication. Abdominal area was prepped and draped in a sterile fashion. M arcaine 0.5% was injected for local anesthetic followed by sharp incision of the skin in the infraumb ilical region. Incision was carried down to fascia, which was opened under direct vision. Peritoneu m was encountered, opened under direct vision. Vicryl #1 placed inside the fascia. Mary trocar wa s carefully introduced. Pneumoperitoneum was obtained. I placed 2 more trocars, 5 mm each one of th em, 1 in the suprapubic and other 1 in left lower quadrant. This allowed me to visualize the area of the appendix. The appendix was visualized, shows an inflamed appendix. The base of the appendix se emed to be spared. We had the patient in Trendelenburg position with right side up. We were able to visualize the base of the appendix, transected that with Endo MILADIS 45 mm 3.5, after creating window i n that area. The mesentery was transected with the help of an Endo-MILADIS 3.5, 2.5 and also 5 mm clips. Appendix removed from abdominal cavity using EndoCatch through the umbilical incision. The area wa s inspected once again. No bile leak, no bleeding. This was after suction and irrigation. At that moment, I proceeded to remove the trocars under direct vision, deflated pneumoperitoneum, closed the fascia with #1 Vicryl. Irrigated the subcutaneous tissue, closed with 3-0 chromic and incisions were closed with 3-0 chromic in a subcuticular fashion. Sponge count and instrument counts correct. The patient tolerated the procedure well. The patient was sent to recovery in stable condition. The pa tient will be readmitted for observation, IV antibiotics, and slowly advance diet. We expect the pat ient to be discharged home by tomorrow. CELINA/MARCEL Voice ID: [id number] Report ID: [id number]
--- NOTE | 2020-08-06 20:19 | PN ---
The patient is doing well immediate postop. She continues to run a hemoglobin of 7.1, couple years a go 7.4. This has happened since she had weight reduction surgery. However, she has been quite stabl e since that time. We will do some further evaluation while she was here. As far as the appendiciti s is concerned, she tolerated the surgery quite well. HR/MODL Voice ID: [id number] Report ID: [id number]
[2020-08-06] MEDS: ALPRAZOLAM 1 MG TABLET PO SCH (21:30)
[2020-08-06] MEDS: ZOLPIDEM TARTRATE 10 MG TABLET PO PRN (22:30)
[2020-08-07] MEDS: PIPER/TAZO/NS 3.375gm 3.375 GM/100 ML BAG IVPB SCH ×3 (02:50→19:46)
[2020-08-07 04:56] LABS: Absolute Lymphocytes (CBC) 0.7 K/uL (0.7-4.9); Basophils % 0.1 % (0-1.3); Hematocrit 24.7 % (36.0-45.0); Lymphocytes % 7.5 % (15.3-44.8); RBC Red Blood Cell Count 3.94 M/uL (3.86-4.86)
[2020-08-07] MEDS: HYDROMORPHONE HCL 1 MG/ML INJ IV PRN (05:00)
[2020-08-07 05:23] LABS: Ferritin 11.6 ng/mL (8-388)
[2020-08-07 05:25] LABS: Protime INR 1.04
[2020-08-07] MEDS: D5 0.45 NS 1,000 ML IV SCH (08:48)
[2020-08-07] MEDS: HYDROCODONE/APAP 7.5/325 MG TAB PO PRN ×4 (08:49→21:20)
[2020-08-07] MEDS: ALPRAZOLAM 1 MG TABLET PO SCH ×2 (08:49→19:47)
--- NOTE | 2020-08-07 11:17 | EKG ---
Test Date: 2020-08-06 Test Time: 07:46:06 Fabric Finisher: NICHOLAS MEASUREMENT RESULTS: Intervals: Rate: 82 NE: 144 QRSD: 88 QT: 380 QTc: 443 Blaine: P: 53 NE: 144 QRS: 28 T: 68 INTERPRETIVE STATEMENTS: Normal sinus rhythm Normal ECG Compared to ECG 05/15/2018 22:11:00 No significant changes Electronically Signed On 08-07-20 11:13:43 CDT by Yoni Chew
[2020-08-07] MEDS ORDERED: NA CHLORIDE 0.9% 500 ML IV SCH (16:00)
[2020-08-07] MEDS ORDERED: NA CHLORIDE 0.9% 500 ML ONE (16:19)
--- NOTE | 2020-08-07 20:02 | PN ---
Date of Progress Note: 08/07/2020 The patient is a little uncomfortable this afternoon. Hemoglobin is now 7. not been obta ined in view of the diagnosis of acute appendicitis and her fluctuant and somewhat persistent hemoglo bin around the 7 level, I feel it is justified in giving her a unit of blood at this stage. Keeping her on IV antibiotics and discharge her tomorrow. HR/MODL Voice ID: [id number] Report ID: [id number]
[2020-08-07 21:43] LABS: Hematocrit 25.7 % (36.0-45.0)
[2020-08-07] MEDS: ZOLPIDEM TARTRATE 10 MG TABLET PO PRN (23:15)
[2020-08-08] MEDS: HYDROCODONE/APAP 7.5/325 MG TAB PO PRN ×3 (03:27→13:30)
[2020-08-08] MEDS: PIPER/TAZO/NS 3.375gm 3.375 GM/100 ML BAG IVPB SCH ×2 (03:39→11:20)
[2020-08-08 09:20] LABS: Absolute Lymphocytes (CBC) 2.3 K/uL (0.7-4.9); Basophils % 0.5 % (0-1.3); Hematocrit 23.7 % (36.0-45.0); Lymphocytes % 40.3 % (15.3-44.8); MPV 8.4 fL (7.6-11.3); RBC Red Blood Cell Count 3.73 M/uL (3.86-4.86)
[2020-08-08 09:26] LABS: BUN Blood Urea Nitrogen 12 mg/dL (7-18); Bicarbonate 26 mmol/L (21-32); Glucose Level 128 mg/dL (74-106); Potassium 3.8 mmol/L (3.5-5.1); Sodium Level 143 mmol/L (136-145)
[2020-08-08] MEDS: ALPRAZOLAM 1 MG TABLET PO SCH (10:23)
[2020-08-08 13:47] VITALS: TEMP 96.4
[2020-08-08] MEDS ORDERED: NA CHLORIDE 0.9% 0 ML ONE (16:48)
[2020-08-08 17:57] VITALS: BP 159/89
--- NOTE | 2020-08-08 21:41 | PN ---
Date of Progress Note: 08/08/2020 The patient feels much better this afternoon. However, her H and H still somewhat of a diagnostic pr oblem as she has not had much of an increase despite having 1 unit. In the past, she states it has in creased to some. She has had a number of units approximately 10 years ago for a similar problem. Dina mcneil also states when she was on oral iron, her hemoglobin did come up. She is not having a stool, so sara mcneil can check the guaiac. Years ago with the same issue, she did have negative endoscopy. Plan would be to discharge her, continue on Augmentin and Tylenol 3 if necessary. She will be called in tomorro w, extra strength Tylenol tonight, and to follow up with Dr. Monique and myself on Thursday. Hopefull y by that time, we will have the stool confirmation of either blood loss or lack of production. She can be discharged with her vital signs relatively stable with some episodes of hypertension, which is possibly secondary to stressful situation. She will be monitored at home. Takes HCTZ on a p.r.n. b asis. HR/MODL Voice ID: [id number] Report ID: [id number]
== END 2020-08-08 18:00 | disposition home or self-care (01) | DRG 343 ==
LOC: ER 05:15 → ERHOLD 07:09 → 2ND-WC 14:08
PROVIDERS: ADMIT Family Medicine; ATTEND Family Medicine
PROC: 30233N1 Transfusion of Nonautologous Red Blood Cells into Peripheral Vein, Percutaneous Approach (ICD-10-PCS; 2020-08-06)
PROC: 0DTJ4ZZ Resection of Appendix, Percutaneous Endoscopic Approach (ICD-10-PCS; principal; 2020-08-06 11:00)
DX: K35.80 Unspecified acute appendicitis (principal); D64.9 Anemia, unspecified; F41.8 Other specified anxiety disorders; F17.210 Nicotine dependence, cigarettes, uncomplicated; I10 Essential (primary) hypertension; Z20.822 Contact with and (suspected) exposure to COVID-19; Z91.09 Other allergy status, other than to drugs and biological substances
CPT/HCPCS: 36415; 36430; 74176; 76377; 80048; 80076; 81003; 81025; 82274; 82728; 82947; 83540; 83690; 85014; 85018; 85025; 85044; 85610; 85730; 86850; 86900; 86901; 88304; 93005; 94760; 96361; 96365; 96375; 99285; J1100; J1170; J2175; J2250; J2405; J2543; J2704; J2710; J3010; J7030; J7040; J7120; J7799; P9016; U0003

== ENCOUNTER 2020-08-21 14:21 | Emergency (ER) | payer SELFPAY ==
--- OUTSIDE RECORDS SUMMARY | 2020-08-21 14:23 | XMS REPORT | Continuity of Care Document ---
:1975 Author Organization [facility] t Address [address] [place] [address] [address]. [address] [place] [address] Care Team Providers Name Role Phone Unavailable Unavailable Unavailable Payers Payer Name Policy Type Policy Number Effective Date Expiration Date S ource Problems This patient has no known problems. Allergies, Adverse Reactions, Alerts Allergy Allergy Status Severity Reaction(s) Onset Inactive Treating Comm ents Source Name Type Date Date Clinician iodine DA Active SV 2016- [facility] 2 [facility] 00:00: d 00 [facility] Medications This patient has no known medications. Procedures This patient has no known procedures. Results This patient has no known results.
[2020-08-21 15:44] LABS: Urine Blood Trace-intact (Negative); Urine Glucose Negative (Negative); Urine Protein 1+ (Negative); Urine Specific Gravity 1.025 (1.005-1.030)
[2020-08-21 15:47] LABS: Basophils % 0.7 % (0-1.3); Hematocrit 30.6 % (36.0-45.0); Lymphocytes % 15.7 % (15.3-44.8); MPV 8.7 fL (7.6-11.3); RBC Red Blood Cell Count 4.66 M/uL (3.86-4.86)
[2020-08-21 16:22] LABS: Blood Morphology Comment NOTED (NOT SEEN); Platelet Estimate ADEQ; White Blood Cell Scan OK (OK)
[2020-08-21 16:23] LABS: Anisocytosis 1+; Hypochromasia 1+
[2020-08-21 16:36] LABS: BUN Blood Urea Nitrogen 9 mg/dL (7-18); Bicarbonate 29 mmol/L (21-32); Glucose Level 100 mg/dL (74-106); Potassium 3.7 mmol/L (3.5-5.1); Sodium Level 139 mmol/L (136-145)
[2020-08-21] MEDS ORDERED: KETOROLAC 30 MG/ML INJ ONE (16:37)
[2020-08-21] MEDS ORDERED: NA CHLORIDE 0.9% 1,000 ML ONE (16:37)
[2020-08-21] MEDS ORDERED: MORPHINE 4 MG/ML SYR ONE (16:52)
[2020-08-21] MEDS ORDERED: ONDANSETRON 4 MG/2 ML VIAL ONE (16:52)
[2020-08-21 17:14] LABS: Urine Amorphous Sediment 3+ /HPF (NONE SEEN); Urine Bacteria >50 /HPF (<20); Urine Mucus 4+ /HPF (NONE SEEN); Urine RBC <5 /HPF (NONE SEEN)
[2020-08-21 17:15] LABS: Urine Specific Gravity/Preg 1.025 (1.005-1.030)
--- NOTE | 2020-08-21 17:29 | EDPHYS ---
Physician Documentation [facility] Name: Kari Ansari Age: 44 yrs Sex: Female : 1975 Arrival Date: 08/21/2020 Time: 14:38 Bed 26 Private MD: ED Physician Adrián Beckford HPI: 08/21 17:26 This 44 yrs old Female presents to ER via Ambulatory with complaints of Pain kb With Urination. 17:26 The patient presents with urinary symptoms, dysuria, frequency. Onset: The kb symptoms/episode began/occurred 4 day(s) ago. Modifying factors: The symptoms are alleviated by nothing, the symptoms are aggravated by urinating. Associated signs and symptoms: Pertinent positives: dysuria, urinary frequency. Severity of symptoms: At their worst the symptoms were mild, moderate, in the emergency department the symptoms are unchanged. The patient has not experienced similar symptoms in the past. The patient has been recently seen by a physician:. Pt reports recent appendectomy. c/o dysuria, frequency and small amounts for a few days. States she was anemic while in the hospital, given blood and is supposed to have blood counts checked again this week. . KETTLEMAN: 15:49 LMP 08/2020 zb Historical: - Allergies: 14:45 Iodine; tw2 - Home Meds: 14:45 Alprazolam Oral [Active]; Ambien Oral [Active]; Hydrochlorothiazide Oral [Active]; tw2 - PMHx: 14:45 Anemia; Anxiety; Hypertension; tw2 - PSHx: 14:45 Gastric Bypass; Cholecystectomy; Appendectomy; tw2 - Immunization history:: Adult Immunizations. - Social history:: Smoking status: . ROS: 17:23 Constitutional: Negative for fever, chills, and weight loss. kb 17:23 : Positive for urinary symptoms, small amounts, burning with urination. 17:23 All other systems are negative. Exam: 17:23 Constitutional: This is a well developed, well nourished patient who is awake, alert, kb and in no acute distress. Head/Face: Normocephalic, atraumatic. ENT: Moist Mucous membranes Cardiovascular: Regular rate and rhythm with a normal S1 and S2. No gallops, murmurs, or rubs. No pulse deficits. Respiratory: Respirations even and unlabored. No increased work of breathing, no retractions or nasal flaring. Abdomen/GI: Soft, non-tender. No distention Skin: Warm, dry with normal turgor. Normal color. MS/ Extremity: Pulses equal, no cyanosis. Neurovascular intact. Full, normal range of motion. Neuro: Awake and alert, GCS 15, oriented to person, place, time, and situation. Moves all extremities. Normal gait. Psych: Awake, alert, with orientation to person, place and time. Behavior, mood, and affect are within normal limits. 17:23 Abdomen/GI: Inspection: healed surgical incision from recent appendectomy. Vital Signs: 14:41 BP 148 / 94; Pulse 79; Resp 17; Temp 97.9(TE); Pulse Ox 99% on R/A; Weight 80.74 kg tw2 (R); Height 5 ft. 5 in. (165.10 cm); Pain 8/10; 15:45 BP 152 / 80; Pulse 73; Resp 16; Pulse Ox 100% on R/A; zb 16:30 BP 111 / 87; Pulse 66; Resp 16; Pulse Ox 98% on R/A; zb 17:48 BP 145 / 73; Pulse 61; Resp 16; Pulse Ox 98% on R/A; zb 14:41 Body Mass Index 29.62 (80.74 kg, 165.10 cm) tw2 MDM: 14:47 Patient medically screened. kb 17:21 Data reviewed: vital signs, nurses notes. Data interpreted: Pulse oximetry: on room air kb is 98 %. Interpretation: normal. Counseling: I had a detailed discussion with the patient and/or guardian regarding: the historical points, exam findings, and any diagnostic results supporting the discharge/admit diagnosis, lab results, the need for outpatient follow up, a family practitioner, to return to the emergency department if symptoms worsen or persist or if there are any questions or concerns that arise at home. 08/21 14:47 Order name: Urine Microscopic Only; Complete Time: 17:18 kb 08/21 15:14 Order name: CBC with Diff; Complete Time: 16:29 kb 08/21 15:14 Order name: Basic Metabolic Panel; Complete Time: 16:39 kb 08/21 15:44 Order name: Urine Dipstick-Ancillary; Complete Time: 15:52 EDMS 08/21 15:56 Order name: Urine --Ancillary (enter results) bd 08/21 15:56 Order name: Urine --Ancillary; Complete Time: 17:18 [facility] 08/21 14:47 Order name: Urine Dipstick-Ancillary (obtain specimen); Complete Time: 15:45 kb 08/21 15:14 Order name: IV Start; Complete Time: 15:45 kb 08/21 16:22 Order name: CBC Smear Scan; Complete Time: 16:29 EDID 08/21 17:15 Order name: Urine Culture EDMS Administered Medications: 14:00 Drug: NS 0.9% 1000 ml Route: IV; Rate: 1000 ml; Site: right antecubital; zb 16:37 Drug: Zofran (Ondansetron) 4 mg Route: IVP; Site: right antecubital; zb 17:26 Follow up: Response: No adverse reaction; Nausea is decreased zb 16:37 Drug: morphine 4 mg {Note: RASS 0.} Route: IVP; Site: right antecubital; zb 17:00 Follow up: Response: No adverse reaction; Pain is decreased; RASS: Alert and Calm (0) zb 17:25 Drug: Rocephin (cefTRIAXone) 1 grams Route: IV; Rate: calculated rate; Site: right zb antecubital; Disposition: 17:52 Co-signature as Attending Physician, Adrián Beckford MD. rn Disposition: 08/21/20 17:28 Discharged to Home. Impression: Urinary tract infection, site not specified. - Condition is Stable. - Discharge Instructions: Urinary Tract Infection, Adult, [id number]. - Prescriptions for Macrobid 100 mg Oral Capsule - take 1 capsule by ORAL route every 12 hours for 10 days; 20 capsule. - Medication Reconciliation Form, Thank You Letter, Antibiotic Education, Prescription Opioid Use form. - Follow up: Emergency Department; When: As needed; Reason: Worsening of condition. Follow up: Private Physician; When: 2 - 3 days; Reason: Recheck today's complaints, Continuance of care, Re-evaluation by your physician. Signatures: Dispatcher [employer] [facility] Justine Aldridge, HELP DESK SUPERVISOR-C HELP DESK SUPERVISOR-CkAdrián Owens MD MD rn Wise, Tara, RN RN 2 Eulalia Montelongo RN RN zb Corrections: (The following items were deleted from the chart) 17:48 17:28 08/21/2020 17:28 Discharged to Home. Impression: Urinary tract infection, site zb not specified. Condition is Stable. Forms are Medication Reconciliation Form, Thank You Letter, Antibiotic Education, Prescription Opioid Use. Follow up: Emergency Department; When: As needed; Reason: Worsening of condition. Follow up: Private Physician; When: 2 - 3 days; Reason: Recheck today's complaints, Continuance of care, Re-evaluation by your physician. kb
--- NOTE | 2020-08-21 17:29 | ER ---
Nurse's Notes [facility] Name: Kari Ansari Age: 44 yrs Sex: Female : 1975 Arrival Date: 08/21/2020 Time: 14:38 Bed 26 Private MD: Diagnosis: Urinary tract infection, site not specified Presentation: 08/21 14:41 Chief complaint: Patient states: i started hurting 3 days ago. it feels like i have a tw2 burning in my urine, like i have a UTI. i had an emergency surgery to have my appendix removed about a week ago. i was running low on blood and anemic. they gave me one pint. years ago i had gastric bypass sx and dr. echavarria wanted me to wait 2 weeks to get checked to see if i was bleeding. i am nauseous. Coronavirus screen: nausea, Client presents with at least one sign or symptom that may indicate coronavirus-19. Standard/surgical mask placed on the client. Provider contacted for isolation considerations. Ebola Screen: Patient denies travel to an Ebola-affected area in the 21 days before illness onset. Initial Sepsis Screen: Does the patient meet any 2 criteria? No. Patient's initial sepsis screen is negative. Does the patient have a suspected source of infection? No. Patient's initial sepsis screen is negative. Risk Assessment: Do you want to hurt yourself or someone else? Patient reports no desire to harm self or others. Onset of symptoms was August 21, 2020. 14:41 Method Of Arrival: Ambulatory tw2 14:41 Acuity: LASHAUN 3 tw2 Triage Assessment: 14:44 General: Appears in no apparent distress. Behavior is calm, cooperative, appropriate tw2 for age. Pain: Complains of pain in pelvis. GI: Reports nausea. : Reports burning with urination. BOTTLER: 15:49 LMP 08/2020 zb Historical: - Allergies: 14:45 Iodine; tw2 - Home Meds: 14:45 Alprazolam Oral [Active]; Ambien Oral [Active]; Hydrochlorothiazide Oral [Active]; tw2 - PMHx: 14:45 Anemia; Anxiety; Hypertension; tw2 - PSHx: 14:45 Gastric Bypass; Cholecystectomy; Appendectomy; tw2 - Immunization history:: Adult Immunizations. - Social history:: Smoking status: . Screenin:11 Abuse screen: Denies threats or abuse. Denies injuries from another. Nutritional zb screening: No deficits noted. Tuberculosis screening: No symptoms or risk factors identified. Fall Risk None identified. Assessment: 15:10 Reassessment: ECP at bedside. zb 15:46 General: Appears in no apparent distress. uncomfortable, Behavior is calm, cooperative, zb appropriate for age. Pain: Complains of pain in pelvis, lower abdomen Pain radiates to low back area Pain currently is 9 out of 10 on a pain scale. Quality of pain is described as aching, dull, throbbing. Neuro: Level of Consciousness is awake, alert, obeys commands, Oriented to person, place, time, situation. Cardiovascular: Capillary refill < 3 seconds Patient's skin is warm and dry. Respiratory: Airway is patent Respiratory effort is even, unlabored, Respiratory pattern is regular, symmetrical. GI: Abdomen is round non-distended, Bowel sounds present X 4 quads. Reports lower abdominal pain. : Urine is clear, Reports burning with urination, since 2-3 days urgency, urinary frequency. Derm: Skin is intact, is healthy with good turgor. Musculoskeletal: Circulation, motion, and sensation intact. Range of motion: intact in all extremities. 16:30 Reassessment: Patient appears in no apparent distress at this time. Patient and/or zb family updated on plan of care and expected duration. Pain level reassessed. Patient is alert, oriented x 3, equal unlabored respirations, skin warm/dry/pink. patient lying in bed at this time awaiting results. c/o pain. notified ecp medication ordered. 17:47 Reassessment: Patient appears in no apparent distress at this time. Patient and/or zb family updated on plan of care and expected duration. Pain level reassessed. Patient is alert, oriented x 3, equal unlabored respirations, skin warm/dry/pink. d/c instructions given. gait even and steady. Patient states feeling better. Patient states symptoms have improved. Vital Signs: 14:41 BP 148 / 94; Pulse 79; Resp 17; Temp 97.9(TE); Pulse Ox 99% on R/A; Weight 80.74 kg tw2 (R); Height 5 ft. 5 in. (165.10 cm); Pain 8/10; 15:45 BP 152 / 80; Pulse 73; Resp 16; Pulse Ox 100% on R/A; zb 16:30 BP 111 / 87; Pulse 66; Resp 16; Pulse Ox 98% on R/A; zb 17:48 BP 145 / 73; Pulse 61; Resp 16; Pulse Ox 98% on R/A; zb 14:41 Body Mass Index 29.62 (80.74 kg, 165.10 cm) tw2 ED Course: 14:38 Patient arrived in ED. ds1 14:44 Triage completed. tw2 14:44 Arm band placed on. tw2 14:47 Justine Aldridge FNP-C is [facility]. kb 14:47 Adrián Beckford MD is Attending Physician. kb 15:10 Eulalia Montelongo, SIENNA is Primary Nurse. zb 15:30 Inserted saline lock: 20 gauge in right antecubital area, using aseptic technique. zb Blood collected. 15:30 Initial lab(s) drawn, by ny, sent to lab. Urine collected: clean catch specimen, clear, zb tram colored. 15:48 Patient has correct armband on for positive identification. Bed in low position. Call zb light in reach. Side rails up X 1. Pulse ox on. NIBP on. Door closed. Noise minimized. 17:47 No provider procedures requiring assistance completed. IV discontinued, intact, zb bleeding controlled, No redness/swelling at site. Pressure dressing applied. Administered Medications: 14:00 Drug: NS 0.9% 1000 ml Route: IV; Rate: 1000 ml; Site: right antecubital; zb 16:37 Drug: Zofran (Ondansetron) 4 mg Route: IVP; Site: right antecubital; zb 17:26 Follow up: Response: No adverse reaction; Nausea is decreased zb 16:37 Drug: morphine 4 mg {Note: RASS 0.} Route: IVP; Site: right antecubital; zb 17:00 Follow up: Response: No adverse reaction; Pain is decreased; RASS: Alert and Calm (0) zb 17:25 Drug: Rocephin (cefTRIAXone) 1 grams Route: IV; Rate: calculated rate; Site: right zb antecubital; Outcome: 17:28 Discharge ordered by . kb 17:47 Discharged to home ambulatory. zb 17:47 Condition: stable 17:47 Discharge instructions given to patient, Instructed on discharge instructions, follow up and referral plans. medication usage, Demonstrated understanding of instructions, follow-up care, medications, Prescriptions given X 1. 17:48 Patient left the ED. zb Signatures: Justine Aldridge, GUEST REQUEST RUNNER-C GUEST REQUEST RUNNER-Ckb Celi Yuen ds1 Shanae Guerra RN RN tw2 Eulalia Montelongo RN RN zb Corrections: (The following items were deleted from the chart) 16:30 16:30 Reassessment: Patient appears in no apparent distress at this time. Patient zb and/or family updated on plan of care and expected duration. Pain level reassessed. Patient is alert, oriented x 3, equal unlabored respirations, skin warm/dry/pink. patient lying in bed at this time awaiting results. zb
[2020-08-21] MEDS ORDERED: CEFTRIAXONE/SWI 1gm 1 GM/10 ML SYR ONE (17:44)
[2020-08-21 17:57] VITALS: TEMP 97.9
[2020-08-21 18:07] VITALS: O2SAT 98
[2020-08-21 18:11] VITALS: BP 145/73
== END 2020-08-21 17:48 | disposition home or self-care (01) ==
LOC: ER 14:21
DX: N39.0 Urinary tract infection, site not specified (principal); I10 Essential (primary) hypertension; F41.9 Anxiety disorder, unspecified; Z98.890 Other specified postprocedural states; Z91.048 Other nonmedicinal substance allergy status
CPT/HCPCS: 36415; 80048; 81003; 81015; 81025; 85025; 87086; 87088; 96374; 96375; 99284; J0696; J2405; J7030

== ENCOUNTER 2022-11-15 22:32 | Emergency (ER) | payer SELFPAY ==
--- OUTSIDE RECORDS SUMMARY | 2022-11-15 22:36 | XMS REPORT | Continuity of Care Document ---
:1975 Author Organization [facility] t Address [address] [facility]. [address] [place] [address] Care Team Providers Name Role Phone LUCIO LUNA Primary Care Physician Unavailable Adeola Solis Attending Clinician Unavailable Amanda Hurst LVN Attending Clinician GER SOLIMAN Attending Clinician Unavailable Ena Rivera Attending Clinician Ger Soliman DO Attending Clinician Dav VERDUGO Attending Clinician Unavailable Dav Gardiner Attending Clinician Daniel Ramirez MD Attending Clinician DANIEL RAMIREZ Attending Clinician Unavailable KNOW, DOES_NOT Admitting Clinician Unavailable GER SOLIMAN Admitting Clinician Unavailable Ger Soliman DO Admitting Clinician DANIEL RAMIREZ Admitting Clinician Unavailable Payers Payer Name Policy Type Policy Number Effective Date Expiration Date S sabino Problems Condition Condition Condition Status Onset Resolution Last Treating Co mments Source Name Details Category Date Date Treatment Clinician Date Bacteremia Bacteremia Disease Active U nivers 4-27 ity of 00:00: [place] 00 Medical Branch Allergies, Adverse Reactions, Alerts Allergy Allergy Status Severity Reaction(s) Onset Inactive Treating Comm ents Source Name Type Date Date Clinician Morphine Drug Active Itching Univers Allergy 4-26 ity of 00:00: [place] 00 Medical Branch IODINE DRUG Active High Anaphylaxis Unive rs INGREDI 4-26 ity of 00:00: [place] 00 Medical Branch MORPHINE DRUG Active High ITCHING Univers INGREDI 4-26 ity of 00:00: [place] 00 Medical Branch Iodine Drug Active Anaphylaxis Unive rs Allergy 4-26 ity of 00:00: [place] 00 Medical Branch Iodinate Propensi Active Anaphylaxis 2021-04 U nivers d ty to 0-26 ity of Contrast adverse 00:00: [place] Media reaction 00 Medical s Branch IODINATE Drug Active Anaphylaxis 2021-04 Uni vers D Class 0-26 ity of CONTRAST 00:00: [place] MEDIA 00 Medical Branch iodine DA Active SV [facility]ROAT 2016- [facility] 2-17 [place] 00:00: d 00 [facility] iodine DA Active SV 2016- [facility] 2-17 [place] 00:00: d 00 Medical [place] NO KNOWN Drug Active Univers ALLERGIE Class ity of S [place] [facility] Social History Social Habit Start Date Stop Date Quantity Comments Source History SDOH University o f Alcohol Std Drinks [place] [facility] History SDOH University o f Alcohol Binge [place] [facility] History SDOH Social Unive rsity of Connections [facility] Med ical Together Branch History SDOH Social Unive rsity of Connections [facility] Medical Branch History SDOH Social Unive rsity of Connections [place] [facility] Membership Branch History SDOH Social Unive rsity of Connections [place] [facility] Meetings Branch History SDOH 2022-08-08 2022-08-08 1 University o f Alcohol Frequency 00:00:00 00:00:00 [facility] edical Branch History SDOH Social 2022-08-08 2022-08-08 5 Unive rsity of Connections Phone 00:00:00 00:00:00 [facility] edical Branch History SDOH Social 2022-08-08 2022-08-08 7 Unive rsity of Connections Living 00:00:00 00:00:00 [place] [facility] History SDOH 2022-08-08 2022-08-08 5 University o f Physical Activity 00:00:00 00:00:00 [place] [facility] DPW Branch History SDOH 2022-08-08 2022-08-08 2 University o f Physical Activity 00:00:00 00:00:00 [place] [facility] MPS Branch History SDOH 2022-08-08 2022-08-08 4 University o f Financial 00:00:00 00:00:00 [place] [facility] History SDOH Food 2022-08-08 2022-08-08 1 Univers ity of Worry 00:00:00 00:00:00 [place] [facility] History SDOH Food 2022-08-08 2022-08-08 1 Univers ity of Scarcity 00:00:00 00:00:00 [place] [facility] History SDOH 2022-08-08 2022-08-08 2 University o f Transport Med 00:00:00 00:00:00 [place] Medic al Branch History SDNJ 2022-08-08 2022-08-08 2 University o f Transport Non-Med 00:00:00 00:00:00 [place] M edical Branch History SDNJ 2022-08-08 2022-08-08 2 University o f Housing Unable to 00:00:00 00:00:00 [place] [facility] Pay Branch History SDNJ 2022-08-08 2022-08-08 1 University o f Housing Places 00:00:00 00:00:00 [place] [facility] matthew Lived Branch History SDNJ 2022-08-08 2022-08-08 2 University o f Housing Homeless 00:00:00 00:00:00 [place] [facility] Last Year Branch Exposure to 2022-07-28 2022-08-07 Not sure University of SARS-CoV-2 (event) 00:00:00 09:02:00 [place] [facility] Tobacco use and 2022-08-07 2022-08-07 Smokeless Universit y of exposure 00:00:00 00:00:00 tobacco non-user [place] Me dical Branch Alcohol intake 2022-08-07 2022-08-07 Ex-drinker [facility] 00:00:00 00:00:00 (finding) [facility] Sex Ass[birth year] At [birth year] Universit y of 00:00:00 00:00:00 [facility] Smoking Status Start Date Stop Date Source Tobacco smoking consumption [facility] unknown Branch Never smoked tobacco [facility] Medications Ordered Filled Start Stop Current Ordering Indication Dosage Frequency Signature Comments Components Source Medication Medication Date Date Medication? Clinician (SIG) Name Name zolpidem 2022-0 Yes 10mg Take 1 Univers (AMBIEN) 10 4-29 tablet by ity of mg tablet 15:53: [place] 08 bedtime as Medical needed for Branch Insomnia. METOPROLOL 0 Yes Take by Univ ers SUCCINATE 4-29 mouth. ity of ORAL 15:53: [place] 08 [facility] ALPRAZolam 2022-0 Yes 2mg Take 1 Unive rs 2 mg tablet -29 tablet by ity of 15:53: mouth 2 [place] 08 (two) Medical times Branch daily as needed for Sleep. zolpidem 0 Yes 10mg Take 1 Univers (AMBIEN) 10 4-29 tablet by ity of mg tablet 15:53: [place] 08 bedtime as Medical needed for Branch Insomnia. METOPROLOL 2022-0 Yes Take by Univ ers SUCCINATE 4-29 mouth. ity of ORAL 15:53: [place] 08 [facility] ALPRAZolam 2022-0 Yes 2mg Take 1 Unive rs 2 mg tablet 4-29 tablet by ity of 15:53: mouth 2 [place] 08 (two) Medical times Branch daily as needed for Sleep. levoFLOXaci 2022- No [id number] 750mg Take 1 Univers n 750 mg 4- 05-10 tablet by ity o f tablet 00:00: 04:59 mouth [place] 00 :00 every 24 Medical (twenty-fo Branch ur) hours for 10 days. levoFLOXaci 2022-2022- No [id number] 750mg Take 1 Univers n 750 mg 4- 05-10 tablet by ity o f tablet 00:00: 04:59 mouth [place] 00 :00 every 24 Medical (twenty-fo Branch ur) hours for 10 days. traMADoL 50 2022-2022- No [id number] 50mg Take 1 Uni vers mg tablet 08-09-07 tablet by ity of 00:00: 04:59 mouth [place] 00 :00 every 6 Medical (six) Branch hours as needed for Pain (scale 7-10) for up to 7 days. Indication s: acute pain cefTRIAXone 2022- No 2000mg 2,000 mg, Univers (ROCEPHIN) 08-08 05-04 IV ity of 2,000 mg in 17:00: 16:59 [place], [place] NaCl 0.9% 00 :00 Q24H ABX, Medic al (NS) 100 mL 6 doses, Bran ch MINI-BAG First dose (after last reorder) on Thu08/08/22 at 1200, Last dose on Thu08/13/22 at 1200, Administer over 30 Minutes, 100 mL
Reas on for Anti-Infec tive: Documented Infection< br>Documen chris Infection Site: Urine
D uration of Therapy: Other (see Comments) KCL 2022- No 40meq 40 mEq, Univers (KLOR-CON 08-08 Oral, ity of M20) tablet 17:00: 16:22 ONCE, 1 [place] 40 mEq 00 :00 dose, On Medical Fri Branch 08/08/22 at 1200, Routine traMADoL Yes 50mg 50 mg, Univers (ULTRAM) 08-08 Oral, ity of tablet 50 15:59: Q6HPRN, [place] mg 44 Starting Medical on Thu Branch 08/08/22 at 1059, Until Discontinu ed, Routine, break through pain enoxaparin Yes 40mg 40 mg, Unive rs (LOVENOX) 08-07 Subcutaneo ity of injection 22:00: [place], DAILY, [place] 40 mg 00 First dose Medical on Thu Branch 08/07/22 at 1700, Until Discontinu ed, Routine ketorolac 2022- No 30mg 30 mg, Unive rs (TORADOL) 08-07 Slow IV ity of injection 20:23: 20:22 Push, [place] 30 mg 47 :47 Q8HPRN, Medical Starting Branch on Thu08/07/22 at 1523, Until 08/10/22 at 1522, Routine, Pain (scale 7-10) ibuprofen Yes 600mg 600 mg, Univ ers (IBU) 08-07 Oral, ity of tablet 600 20:23: Q8HPRN, [place] mg 30 Starting Medical on [facility] Branch 08/07/22 at 1523, Until Discontinu ed, Routine, Pain (scale 4-6) levalbutero 0 Yes 1.25mg 1.25 mg, Univers l (XOPENEX) 08-07 Inhalation it y of nebulizer 20:17: , TIDPRN, [place] as solution 55 Starting Medical 1.25 mg on [facility] Branch 08/07/22 at 1517, Until Discontinu ed, Routine, Wheezing, Shortness of Breath ALPRAZolam Yes 2mg 2 mg, Univer s (XANAX) 08-07 Oral, ity of tablet 2 mg 19:58: BIDPRN, [place] as [address] [facility] 08/07/22 at 1458, Until Discontinu ed, Routine, Anxiety zolpidem 0 Yes 10mg 10 mg, Univers (AMBIEN) 08-07 Oral, ity of tablet 10 19:58: QHSPRN, [place] mg 12 Starting Medical on [facility] Branch 08/07/22 at 1458, Until Discontinu ed, Routine, Insomnia cefTRIAXone No 1000mg 1,000 mg, Univers (ROCEPHIN) 08-07 IV ity of 1,000 mg in 17:30: 17:30 [facility], [place] NaCl 0.9% 00 :00 ONCE, 1 Medical (NS) 100 mL dose, On Bran ch MINI-BAG [facility] 08/07/22 at 1230, Administer over 30 Minutes, 100 mL
Reas on for Anti-Infec tive: Documented Infection< br>Documen chris Infection Site: Urine<br&g t;Duration of Therapy: Other (see Comments) ondansetron Yes 4mg 4 mg, Slow Univers (ZOFRAN 08-07 IV Push, ity of (PF)) 16:40: Q6HPRN, [place] injection 4 51 Starting Medi matthew mg on [facility] Branch 08/07/22 at 1140, Until Discontinu ed, Routine, Nausea and Vomiting (N/V) acetaminoph 0 Yes 650mg 650 mg, Un rayna en 08-07 Oral, ity of (TYLENOL) 16:40: Q6HPRN, [place] tablet 650 36 Starting Medic al mg on Alejandra Branch 08/07/22 at 1140, Until Discontinu ed, Routine, Pain (scale 1-3), Temp > 38 C NaCl 0.9% 2022- No 30mL/kg at 999 Un rayna (NS) bolus 08-07 mL/hr, ity of infusion 15:45: 17:48 2,286 mL [place] 2,286 mL 00 :00 (30 mL/kg Medica l ?76.2 kg), Branch IV Infusion, ONCE, 1 dose, On Alejandra 08/07/22 at 1045, STAT ketorolac 2022- No 30mg 30 mg, Unive rs (TORADOL) 08-07 Slow IV ity of injection 15:45: 15:06 Push, [place] 30 mg 00 :00 ONCE, 1 Medical dose, On Branch Alejandra 08/07/22 at 1045, BETO cefTRIAXone 2022- No 1000mg 1,000 mg, Univers (ROCEPHIN) 08-07 IV ity of 1,000 mg in 14:45: 15:15 [facility] [place] NaCl 0.9% 00 :00 ONCE, 1 Medical (NS) 100 mL dose, On [facility] ch MINI-BAG Alejandra 08/07/22 at 0945, Administer over 30 Minutes, 100 mL
Reas on for Anti-Infec tive: Documented Infection< br>Documen chris Infection Site: Urine<br&g t;Duration of Therapy: Other (see Comments) ibuprofen 2022- No 600mg 600 mg, Uni vers (IBU) 08-07 Oral, ity of tablet 600 02:45: 02:50 ONCE, 1 [place] as mg 00 :00 dose, On Medical Wed Branch 08/06/22 at 2145, BETO magnesium 2022- No 2g 2 g, IV Univ ers sulfate in 08-07 [place], it y of water 2 02:45: 02:50 Administer [place] as gram/50 mL 00 :00 over 60 Medica l (4 %) Minutes, Branch infusion 2 ONCE, 1 g dose, On Thu08/06/22 at 2145, Routine NaCl 0.9% 0 2022- No 1000mL at 999 Uni vers (NS) bolus 08-07-27 mL/hr, ity of infusion 01:15: 01:44 1,000 mL, [place] as 1,000 mL 00 :00 IV Medical Infusion, Branch ONCE, 1 dose, On Thu08/06/22 at 2015, STAT NaCl 0.9% 2022-0 2022- No 1000mL at 999 Uni vers (NS) bolus 08-06-27 mL/hr, ity of infusion 23:00: 01:44 1,000 mL, [place] as 1,000 mL 00 :00 IV Medical Infusion, Branch ONCE, 1 dose, On Thu08/06/22 at 1800, STAT cefTRIAXone 2022- No 1000mg 1,000 mg, Univers (ROCEPHIN) 08-06 IV ity of 1,000 mg in 22:00: 23:10 [place], [place] NaCl 0.9% 00 :00 ONCE, 1 Medical (NS) 100 mL dose, On Bran ch MINI-BAG Thu08/06/22 at 1700, Administer over 30 Minutes, 100 mL
Reas on for Anti-Infec tive: Empiric Therapy for Suspected Infection< br>Empiric Therapy Site: Urine
D uration of therapy: 72 hours acetaminoph 2022-0 2022- No 1000mg 1,000 mg, Univers en 08-06 Oral, ity of (TYLENOL) 22:00: 22:16 ONCE, 1 [place] tablet 00 :00 dose, On Medical 1,000 mg 08/06/22 at 1700, BETO ondansetron 2022-0 Yes [id number] 4mg Take 1 Univers 4 mg 4-26 tablet by ity of disintegrat 00:00: mouth [place] ing tablet 00 every 8 Medica l (eight) Branch hours as needed for Nausea and Vomiting (N/V). ondansetron 3-0 Yes [id number] 4mg Take 1 Univers 4 mg 4-26 tablet by ity of disintegrat 00:00: mouth [place] ing tablet 00 every 8 Medica l (eight) Branch hours as needed for Nausea and Vomiting (N/V). ondansetron 2023-0 Yes [id number] 4mg Take 1 Univers 4 mg 4-26 tablet by ity of disintegrat 00:00: mouth [place] ing tablet 00 every 8 Medica l (eight) Branch hours as needed for Nausea and Vomiting (N/V). cefdinir 2022- No [id number] 300mg Take 1 U nivers 300 mg 4-26 05-07 capsule by ity of capsule 00:00: 04:59 mouth [place] 00 :00 every 12 Medical (twelve) Branch hours for 10 days. cefdinir 2022- No [id number] 300mg Take 1 U nivers 300 mg 4-26 -29 capsule by ity of capsule 00:00: 00:00 mouth [place] 00 :00 every 12 Medical (twelve) Branch hours for 10 days. ketorolac 2021-04 No 30mg 30 mg, Unive rs (TORADOL) 0-27 -27 Slow IV ity of injection 06:15: 06:08 [place], [place] 30 mg 00 :00 ONCE, 1 Medical dose, On Branch [facility] 02/06/22 at 0115, BETO naproxen 2021-04- No [id number] 500mg Take 1 Univers 500 mg 0-07 tablet by ity of tablet 00:00: 05:59 mouth in [place] 00 :00 the Medical morning Branch and 1 tablet in the evening. Take with meals. Do all this for 10 days. Immunizations Ordered Filled Immunization Date Status Comments [facility] e Immunization Name Name SARS-COV-2 COVID-19 2020-06-30 Completed Unive rsity of PFIZER VACCINE 00:00:00 [facility] SARS-COV-2 COVID-19 2020-06-30 Completed Unive rsity of PFIZER VACCINE 00:00:00 [facility] SARS-COV-2 COVID-19 2020-06-30 Completed Unive rsity of PFIZER VACCINE 00:00:00 [facility] Vital Signs Vital Name Observation Time Observation Value Comments Source Systolic blood 2022-08-09 16:28:00 131 mm[Hg] Univer sity of pressure [facility] Diastolic blood 2022-08-09 16:28:00 82 mm[Hg] Unive rsity of pressure [facility] Heart rate 2022-08-09 16:28:00 86 /min [facility] [place] [facility] Body temperature 2022-08-09 16:28:00 35.61 Johanna Univ ersity of [place] [facility] Respiratory rate 2022-08-09 16:28:00 18 /min Univ ersity of [place] [facility] Oxygen saturation in 2022-08-09 16:28:00 100 /min University of Arterial blood by [facility] matthew Pulse oximetry Branch Body weight 2022-08-09 09:00:00 82.963 kg [facility] ty [facility] [place] [facility] BMI 2022-08-09 09:00:00 28.65 kg/m2 [facility] [place] [facility] Body height 2022-08-07 19:35:00 170.2 cm [facility] [place] [facility] Systolic blood 2022-08-07 02:00:00 130 mm[Hg] Univer sity of pressure [place] [facility] Diastolic blood 2022-08-07 02:00:00 60 mm[Hg] Unive rsity of pressure [facility] Heart rate 2022-08-07 02:00:00 77 /min [facility]i ty [facility] [place] [facility] Respiratory rate 2022-08-07 02:00:00 20 /min Univ ersity of [place] [facility] Oxygen saturation in 2022-08-07 02:00:00 96 /min University of Arterial blood by [facility] Pulse oximetry Branch Body temperature 2022-08-07 01:43:00 36.44 Johanna Univ ersity [facility] [place] [facility] Body height 2022-08-06 21:43:00 172.7 cm [facility] [place] [facility] Body weight 2022-08-06 21:43:00 76.658 kg [facility] [place] [facility] BMI 2022-08-06 21:43:00 25.70 kg/m2 [facility] [place] [facility] Systolic blood 2022-02-06 05:49:00 146 mm[Hg] Univer sity of pressure [place] [facility] Diastolic blood 2022-02-06 05:49:00 92 mm[Hg] Unive rsity of pressure [place] [facility] Heart rate 2022-02-06 05:49:00 79 /min [facility] [place] [facility] Body temperature 2022-02-06 05:49:00 36.61 Johanna Univ ersity of [place] [facility] Respiratory rate 2022-02-06 05:49:00 18 /min [facility] Oxygen saturation in 2022-02-06 05:49:00 97 /min [facility] blood by [facility] Pulse oximetry Branch Body height 2022-02-06 04:28:00 167.6 cm [facility] Body weight 2022-02-06 04:28:00 83.915 kg [facility] BMI 2022-02-06 04:28:00 29.86 kg/m2 [facility] Procedures Procedure Date / Time Performing Clinician Source Performed BLOOD CULTURE SCREEN 2022-08-08 09:15:00 Ger Soliman [facility] BASIC METABOLIC PANEL 2022-08-08 09:15:00 Ger Soliman [facility] (NA, K, CL, CO2, [facility] GLUCOSE, BUN, CREATININE, CA) CBC WITH DIFF 2022-08-08 09:15:00 Ger Soliman [facility] CT ABDOMEN PELVIS WO 2022-08-07 15:14:10 Ena Ngo [facility] CONTRAST [facility] POCT TEST 2022-08-07 15:00:00 Ena Ngo [facility] BLOOD CULTURE SCREEN 2022-08-07 14:44:00 Ena Ngo [facility] COMP. METABOLIC PANEL 2022-08-07 14:44:00 Ena Ngo [facility] ([id number]) [facility] CBC WITH DIFF 2022-08-07 14:44:00 Ena Ngo [facility] CONSENT/REFUSAL FOR 2022-08-07 13:54:29 Doctor Unassigned, No Un [facility] DIAGNOSIS AND TREATMENT Name [facility] EKG-12 LEAD 2022-08-07 02:48:53 Dav Verdugo [facility] BLOOD CULTURE SCREEN 2022-08-06 22:13:00 Dav Verdugo [facility] LIPASE 2022-08-06 22:13:00 Dav Verdugo [facility] MAGNESIUM 2022-08-06 22:13:00 Dav Verdugo [facility] COMP. METABOLIC PANEL 2022-08-06 22:13:00 Dav Verdugo [facility] ([id number]) [facility] [place] URINE DRUG (IMMUNOASSAY) 2022-08-06 22:13:00 Dav Verdugo [facility] SCREEN CBC WITH DIFF 2022-08-06 22:13:00 Emily, [facility] URINALYSIS 2022-08-06 22:13:00 Emily [facility] URINE DRUG (IMMUNOASSAY) 2022-02-06 05:47:00 Daniel Ramirez [facility] SCREEN COMP. METABOLIC PANEL 2022-02-06 05:39:00 Daniel Ramirez [facility] ([id number]) [facility] CBC WITH DIFF 2022-02-06 05:39:00 Daniel Ramirez [facility] CT ABDOMEN PELVIS WO 2022-02-06 05:22:37 Daniel Ramirez [facility] CONTRAST [facility] URINALYSIS 2022-02-06 04:37:00 [place] [facility] NOTICE OF PRIVACY 2022-02-06 04:21:39 Doctor Unassigned, [facility] PRACTICES Name Medical Branch Encounters Start End Encounter Admission Attending Care Care Encounter Source Date/Time Date/Time Type Type Clinicians Facility Department ID 2022-08-14 2022-08-15 Emergency EM Solis, [facility] KRISTEN [id number] 22:51:00 01:10:[address] [place] [address] 2022-08-11 2022-08-11 Transition CAROLINE Hurst [id number] Univers 00:00:00 00:00:00 of Care Amanda FARRIS [id number] ity ilia TRAN 4.2.7.2.686 [place] [id number] [facility] 403 Branch 2022-08-07 2022-08-09 Inpatient X MOE SOLIMAN ATUL [id number] Univers 09:07:00 15:52:00 GER [facility] 2022-08-07 2022-08-09 [facility] Ena Ngo [facility] [id number] Univers 09:07:00 15:52:00 Encounter Ger Soliman [id number] ity of [place] 4.2.7.2.686 [facility] [id number] [address] 2022-08-06 2022-08-06 Emergency X Dav VERDUGO [facility] ERT [id number] Univers 16:36:00 [facility] 2022-08-06 Emergency Dav Verdugo [facility] [id number] Univers 16:36:00 21:59:00 Jessica MORE [id number] i ty of [place] 4.2.7.2.686 [facility] [id number] [address] 2022-02-05 2022-02-06 [facility] [id number] Univers 23:31:00 01:50:00 Daniel MORE 350.1.13.10 i ty of [place] 4.2.7.2.686 [facility] [id number] [address] 2022-02-05 2022-02-06 Emergency X JAMES [facility] ERT [id number] Univers 23:31:00 01:50:00 DANIEL [facility] Results Test Description Test Time Test Comments Results Result [facility] e Comments - CT C-SPINE W/O 2022-08-14 CONT 23:51:00 [facility] 1975 Sex: F [facility] 1975 Age/S: 46 / F [id number] [place] Unit #: [id number] Loc: Alli Belcher [address] Phys: Adeola Solis DO Acct: [id number] Dis Date: Status: REG ER PHONE #: [phone] Exam Date: 08/14/20222324 FAX #: Reason: neck pain EXAMS: CPT: [id number] CT C-SPINE W/O CONT 58820 EXAM: - CT HEAD/BRAIN W/O CONT HISTORY: Fall. Injury. Headache. TECHNIQUE: Axial tomograms through the brain were obtained without intravenous contrast. This exam was performed according to our departmental dose-optimization program, which includes automated exposure control, adjustment of the mA and/or kV according to patient size and/or use of iterative reconstruction technique. COMPARISON: April 01, 2017. FINDINGS: There is no intracranial hemorrhage, or mass effect. The ventricular system and sulci are age-appropriate. There is a nondisplaced fracture in right occipital skull, acute versus chronic. This was not present on prior exam. The osseous structures and orbits, otherwise show no significant abnormalities. The visualized sinuses are relatively clear. The soft tissues are unremarkable. IMPRESSION: No evidence of acute intracranial abnormality or hemorrhage. Right occipital skull fracture, acute versus chronic. Clinical correlation is recommended. EXAM: - CT C-SPINE W/O CONT HISTORY: Fall. Pain. TECHNIQUE: Axial tomograms through the cervical spine were obtained without intravenous contrast. Sagittal and coronal reformatted images are provided. This exam was performed according to our departmental dose-optimization program, which includes automated exposure control, adjustment of the mA and/or kV according to patient size and/or use of iterative reconstruction technique. PAGE 1 Signed Report (CONTINUED) Name: ZOILA BANREY [facility] Myrtle : 1975 Age/S: 46 / F [id number] [address] Unit #: [id number] Loc: Alli Belcher [address] Phys: Adeola Solis DO Acct: [id number] Dis Date: Status: REG ER PHONE #: [phone] Exam Date: 08/14/20222324 FAX #: Reason: neck pain EXAMS: CPT: [id number] CT C-SPINE W/O CONT 46485 (Continued) COMPARISON: None available time of interpretation. FINDINGS: Vertebral heights and alignment are maintained. No acute fracture or subluxation. The prevertebral soft tissues are within normal limits. The visualized soft tissues of the neck show no significant abnormalities. Mild degenerative disc disease and facet arthropathy is present at multiple levels. IMPRESSION: No acute osseous abnormality in cervical spine. No evidence of acute intracranial abnormality or hemorrhage. Right occipital skull fracture, acute versus chronic. Clinical correlation is recommended. at 2351 Reported and signed by: Nelson Samuel M.D. CC: Adeola Solis DO Technologist:RT Kan(R)(CT) CTDI: DLP: Trnscb Date/Time: 08/14/2022 (2350) [email or web address] Orig Print D/T: S: 08/14/2022 (1068) PAGE 2 Signed Report - CT HEAD/BRAIN 2022-08-14 W/O CONT 23:51:00 [facility] : 1975 Sex: F Name: ZOILA BARNEY [facility] : 1975 Age/S: 46 / F [address] [place] Unit #: [id number] Loc: Alli Belcher [address] Phys: Adeola Solis DO Acct: [id number] Dis Date: Status: REG ER PHONE #: [phone] Exam Date: 08/14/2022 2320 FAX #: Reason: headache EXAMS: CPT: [id number] CT HEAD/BRAIN W/O CONT 25070 EXAM: - CT HEAD/BRAIN W/O CONT HISTORY: Fall. Injury. Headache. TECHNIQUE: Axial tomograms through the brain were obtained without intravenous contrast. This exam was performed according to our departmental dose-optimization program, which includes automated exposure control, adjustment of the mA and/or kV according to patient size and/or use of iterative reconstruction technique. COMPARISON: April 01, 2017. FINDINGS: There is no intracranial hemorrhage, or mass effect. The ventricular system and sulci are age-appropriate. There is a nondisplaced fracture in right occipital skull, acute versus chronic. This was not present on prior exam. The osseous structures and orbits, otherwise show no significant abnormalities. The visualized sinuses are relatively clear. The soft tissues are unremarkable. IMPRESSION: No evidence of acute intracranial abnormality or hemorrhage. Right occipital skull fracture, acute versus chronic. Clinical correlation is recommended. EXAM: - CT C-SPINE W/O CONT HISTORY: Fall. Pain. TECHNIQUE: Axial tomograms through the cervical spine were obtained without intravenous contrast. Sagittal and coronal reformatted images are provided. This exam was performed according to our departmental dose-optimization program, which includes automated exposure control, adjustment of the mA and/or kV according to patient size and/or use of iterative reconstruction technique. PAGE 1 Signed Report (CONTINUED) Name: ZOILA BARNEY [facility] Myrtle : 1975 Age/S: 46 / F [address] [facility] Unit #: [id number] Loc: [place] [address] Phys: Adeola Solis DO Acct: [id number] Dis Date: Status: REG ER PHONE #: [phone] Exam Date: 08/14/2022 2320 FAX #: Reason: headache EXAMS: CPT: [id number] CT HEAD/BRAIN W/O CONT 88312 (Continued) COMPARISON: None available time of interpretation. FINDINGS: Vertebral heights and alignment are maintained. No acute fracture or subluxation. The prevertebral soft tissues are within normal limits. The visualized soft tissues of the neck show no significant abnormalities. Mild degenerative disc disease and facet arthropathy is present at multiple levels. IMPRESSION: No acute osseous abnormality in cervical spine. No evidence of acute intracranial abnormality or hemorrhage. Right occipital skull fracture, acute versus chronic. Clinical correlation is recommended. at 2351 Reported and signed by: Nelson Samuel M.D. CC: Adeola Solis DO Technologist:Shoaib Eldridge, RT(R)(CT) CTDI: DLP: Trnscb Date/Time: 08/14/2022 (2350) [email or web address] Orig Print D/T: S: 08/14/2022 (7053) PAGE 2 Signed Report - XR L-SPINE 05/162022-08-14 VIEWS 23:41:00 [facility] 1975 Sex: F Name: ZOILA BARNEY [facility] : 1975 Age/S: 46 / F [address] [facility] Unit #: [id number] Loc: [place] [address] Phys: Adeola Solis DO Acct: [id number] Dis Date: Status: PRE ER PHONE #: [phone] Exam Date: 08/14/2022 2330 FAX #: Reason: back pain EXAMS: CPT: [id number] XR L-SPINE 05/16 VIEWS 35013 Fluoro Time: DAP (Gy m2): Air Kerma (mGy): Lumbar Spine, 3 Views Location Code M12 History: back pain Findings: There is normal anatomic alignment. There is no spondylolisthesis. Vertebral body heights are normal without compression fractures. There is osteopenia. Degenerative disc space narrowing and endplate spurs noted at L4-L5 and L5-S1, more pronounced at L5-S1 which includes chronic endplate sclerosis. Impression: No acute osseous findings. Lower lumbar spondylosis. at 2341 Reported and signed by: Kevin Santiago M.D. CC: Adeola Solis DO PAGE 1 Signed Report Name: ZOILA BARNEY [place] : 1975 Age/S: 46 / F [address] [facility] Unit #: [id number] Loc: [place] [address] Phys: Adeola Solis DO Acct: [id number] Dis Date: Status: PRE ER PHONE #: [phone] Exam Date: 08/14/2022 2330 FAX #: Reason: back pain EXAMS: CPT: [id number] XR L-SPINE 2/3 VIEWS 49091 Fluoro Time: DAP (Gy m2): Air Kerma (mGy): (Continued) Technologist: Shoaib Eldridge, RT(R)(CT) Trnscb Date/Time: 08/14/2022 (234) [id number] Orig Print D/T: S: 08/14/2022 (2345) PAGE 2 Signed Report POCT TEST 2022-08-07 15:00:00 Test Item Value Reference Range Interpretation Comme nts POCT PREG (test code = 1605) negative On board controls acceptable with C Line (test code = 3574) present POCT PREG LOT # (test code = 3575) [id number] POCT PREG TEST DATE (test code = 3576) 11/19/2023 Lab Interpretation (test code = 49926-4) [facility]4557[facility]2022-02-06 06:04:21 Test Item Value Reference Range Interpretation Comments NA (test code = 140 mmol/L 135-145 3257520342) K (test code = 4.0 mmol/L 3.5-5.0 0879479596) CL (test code = 104 mmol/L 98-108 7448645980) CO2 TOTAL (test code = 30 mmol/L 23-31 2703781238) AGAP (test code = 2-16 0269352354) BUN (test code = 9 mg/dL 7-23 6348591273) GLUCOSE (test code = 94 mg/dL 70-110 0391004493) CREATININE (test code = 0.58 mg/dL 0.50-1.04 7065493119) TOTAL BILI (test code = 0.4 mg/dL 0.1-1.2 1248212688) CALCIUM (test code = 9.1 mg/dL 8.6-10.6 1238617399) T PROTEIN (test code = 6.7 g/dL 6.3-8.2 9253657140) ALBUMIN (test code = 3.9 g/dL 3.5-5.0 5498915892) ALK PHOS (test code = 79 U/L 34-122 8045153025) ALTv (test code = 31 U/L 5-35 2-6) AST(SGOT) (test code = 42 U/L 13-40 H 7337569911) eGFR (test code = mL/min/1.73m2 4649601547) LAKEISHA (test code = LAKEISHA) Association of Glomerular Filtration Rate (GFR) and Staging of Kidney Disease* + --+ --+ ------+| GFR (mL/min/1.73 m2) ?| With Kidney Damage ?| ?Without Kidney Damage+ --------+ --------+ +| ?>90 ?| ?Stage one ?| ? Normal ?+ ---+ ---+ -------+| ?60-89 ?| ?Stage two ?| ? Decreased GFR ? + --+ --+ ------+| ?30-59 ?| ?Stage three ?| ? Stage three ? + --+ --+ ------+| ?15-29 ?| ?Stage four ? | ? Stage four ?+ ---+ ---+ -------+| ?<15 (or dialysis) ? ?| ?Stage five ? | ? Stage five ?+ ---+ ---+ -------+ *Each stage assumes the associated GFR level has been in effect for at least three months. ?Stages 1 to 5, with or without kidney disease, indicate chronic kidney disease. Notes: Determination of stages one and two (with eGFR >59mL/min/1.73 m2) requires estimation of kidney damage for at least three months as defined by structural or functional abnormalities of the kidney, manifested by either:Pathological abnormalities or Markers of kidney damage (including abnormalities in the composition of the blood or urine or abnormalities in imaging tests). Lab Interpretation Abnormal (test code = 69304-8) [facility] WITH [id number] 05:50:09 Test Item Value Reference Range Interpretation Comments WBC (test code = See_Comment [Automated 6690-2) message] The sy stem which generated this result transmitted reference range : 4.30 - 11.10 10*3/?L. The reference range was not used to interpret this result as normal/abnormal . RBC (test code = See_Comment L [Automated 789-8) message] The sy stem which generated this result transmitted reference range : 3.93 - 5.25 10*6/?L. The reference range was not used to interpret this result as normal/abnormal . HGB (test code = 13.2 g/dL 11.6-15.0 718-7) HCT (test code = 38.8 % 35.7-45.2 4544-3) MCV (test code = 99.5 fL 80.6-95.5 H 787-2) MCH (test code = 33.8 pg 25.9-32.8 H 785-6) MCHC (test code = 34.0 g/dL 31.6-35.1 786-4) RDW-SD (test code = 56.1 fL 39.0-49.9 H 48499-7) RDW-CV (test code = 15.3 % 12.0-15.5 788-0) PLT (test code = See_Comment [Automated 777-3) message] The sy stem which generated this result transmitted reference range : 166 - 358 10*3/ ?L. The reference r ghulam was not used to interpret this result as normal/abnormal . MPV (test code = 9.5 fL 9.5-12.9 75689-1) NRBC/100 WBC (test See_Comment [Automat ed code = 6550811669) message] The system which generated this result transmitted reference range : 0.0 - 10.0 /100 WBCs. The refer ence range was not u sed to interpret th is result as normal/abnormal . NRBC x10^3 (test code See_Comment [Auto mated = 1199099666) message] The s ystem which generated this result transmitted reference range : 10*3/?L. The reference range was not used to interpret this result as normal/abnormal . GRAN MAT (NEUT) % 51.1 % (test code = 770-8) IMM GRAN % (test code 0.40 % = 4507635757) LYMPH % (test code = 36.9 % 736-9) MONO % (test code = 9.1 % 5905-5) EOS % (test code = 1.8 % 713-8) BASO % (test code = 0.7 % 706-2) GRAN MAT x10^3(ANC) 2.91 10*3/uL 1.88-7.09 (test code = 3587480442) IMM GRAN x10^3 (test 0.00-0.06 code = 5026377090) LYMPH x10^3 (test code 2.10 10*3/uL 1.32-3.29 = 731-0) MONO x10^3 (test code 0.52 10*3/uL 0.33-0.92 = 742-7) EOS x10^3 (test code = 0.10 10*3/uL 0.03-0.39 711-2) BASO x10^3 (test code 0.04 10*3/uL 0.01-0.07 = 704-7) Lab Interpretation Abnormal (test code = 09222-5) [facility] Notes Date/Time Note Provider Source 2022-08-14 23:02:00-00:00 [facility] ([facility]) EMERGENCY PROVIDER REPORT REPORT#:[id number] REPORT STATUS: Signed DATE:08/14/22 TIME:2301 PATIENT: ZOILA BARNEY UNIT #: [id number] ROOM/BED: : 71 AGE: 46 SEX: F PCP PHYS: No Primar y or Family Physician SERVICE AUTHOR: Adeola Solis * ALL edits or amendments must be made on the el ectronic/computer document * HPI-Trauma Minor/Fall General Initial Greet Date/Time 08/14/22 7754 Presentation Chief Complaint Fall Free Text HPI Notes Free Text HPI Notes The patient is a 46-year-old female with a past medical history significant for hypertension who is presenting with a headache, neck pain and back pain after she sustained a 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 Per EMS, no LOC. The patient does not take any b lood thinners. Risk-Trauma Minor/Fall Risk Stratification Nexus C-Spine Criteria No: Post midline tenderness. Review of Systems ROS Statements All systems rev neg except as marked. Past Medical History - Adult Stated Complaint HEADACHE S/P SLIPPED AND FALL Allergies Coded Allergies: iodine (Severe, THROAT CLOSING 03/29/17) Home Medications Active Scripts ZOLPIDEM (AMBIEN) 10 MG PO BEDTIME PRN PRN INSOM TOYA ZOLPIDEM (AMBIEN) 10 MG PO BEDTIME PRN PRN INSO MNIA #14 TAB Prov: 02/06/17 SULFAMETHOXAZOLE/TMP (BACTRIM DS 800/160 MG) 1 T AB PO BID 3 Days #6 TABS Prov: 02/04/18 Reported Medications cloNIDine 0.1 MG PO DAILY NEBIVOLOL (BYSTOLIC) 10 MG PO DAILY Past Medical History: Reports: Hypertension. Past Surgical History: Denies: Abdominal surgery. Alcohol Use Alcohol use Drug Use Denies recreational drugs Physical Exam Vital Signs Vital Signs First Documented: Result Date Time Pulse Ox 95 / 2252 B/P 129/76 / 2252 B/P Mean 93 /2 O2 Delivery Room air 08/15 2251 Temp 36.4 /2251 Pulse 80 / 2252 Resp 17 08/15 2251 Last Documented: Result Date Time Pulse Ox 95 / 2252 B/P 129/76 08/14 2252 B/P Mean 93 /2251 O2 Delivery Room air 08/15 2251 Temp 36.4 / 2252 Pulse 80 / 2252 Resp 17 / 2252 Review of Vital Signs Reviewed Free Text PE Notes Free Text PE Notes Free Text PE Notes Physical Exam General/Const General/Const Awake, Alert, No acute distress, Well appearing MS Head Head Atraumatic, Normocephalic Eyes Eyes Atraumatic, No scleral icterus Ears/Nose/Throat Ears/Nose/Throat Atraumatic, Airway patent, Muc ous membranes moist, Pharynx NL MS Neck Neck Atraumatic, Supple, No meningismus, Full r ghulam of motion Resp/Chest Respiratory/Chest Atraumatic, Breath sounds NL, Breath sounds = bilat, No respiratory distress Cardiovascular Cardiovascular Heart rate NL, Regular rhythm, H eart sounds NL, No gallop, No murmurs Abdomen/GI Abdomen/GI Atraumatic, Soft, Non-tender, McBurn ey's non-tender, No guarding MS Back Back Atraumatic, No muscle spasm MS Upper Extrem Upper Extremity/MS Atraumatic, Inspection NL, N o swelling MS Lower Extrem Lower Ext/Pelvis/MS Atraumatic, Inspection NL, No swelling, Non-tender Skin Skin Atraumatic, Color NL, No rash, Warm Neurologic Neurologic Oriented X3, Speech NL, No motor def icits, No sensory deficits, GCS 15 Interpretation Diagnostics Lab Results Interpretation Results Recent Impressions: CAT SCAN - CT HEAD/BRAIN W/O CONT 08/145 Report Impression - Status: SIGNED Entered: 08/14/20222353 IMPRESSION: No evidence of acute intracranial abnormality or hemorrhage. Right occipital skull fracture, acute versus chr onic. Clinical correlation is recommended. EXAM: - CT C-SPINE W/O CONT HISTORY: Fall. Pain. TECHNIQUE: Axial tomograms through the cervical spine were obtained without intravenous contrast. Sagittal and coron al reformatted images are provided. This exam was performed according to our [facility] ental dose-optimization program, which includes automa chris exposure control, adjustment of the mA and/or kV according to bunny ent size and/or use of iterative reconstruction technique. COMPARISON: None available time of interpretatio n. FINDINGS: Vertebral heights and alignment are maintained. No acute fracture or subluxation. The prevertebral soft tissues are w ithin normal limits. The visualized soft tissues of the neck show no significant abnormalities. Mild degenerative disc disease an d facet arthropathy is present at multiple levels. IMPRESSION: No acute osseous abnormality in cervical spine. No evidence of acute intracranial abnormality or hemorrhage. Right occipital skull fracture, acute versus chr onic. Clinical correlation is recommended. Impression By: [email or web address] - Deepthi Alfaro CAT SCAN - CT C-SPINE W/O CONT 08/15 2319 Report Impression - Status: SIGNED Entered: 08/14/20222353 IMPRESSION: No evidence of acute intracranial abnormality or hemorrhage. Right occipital skull fracture, acute versus chr onic. Clinical correlation is recommended. EXAM: - CT C-SPINE W/O CONT HISTORY: Fall. Pain. TECHNIQUE: Axial tomograms through the cervical spine were obtained without intravenous contrast. Sagittal and coron al reformatted images are provided. This exam was performed according to our [facility] ental dose-optimization program, which includes automa chris exposure control, adjustment of the mA and/or kV according to bunny ent size and/or use of iterative reconstruction technique. COMPARISON: None available time of interpretatio n. FINDINGS: Vertebral heights and alignment are maintained. No acute fracture or subluxation. The prevertebral soft tissues are w ithin normal limits. The visualized soft tissues of the neck show no significant abnormalities. Mild degenerative disc disease an d facet arthropathy is present at multiple levels. IMPRESSION: No acute osseous abnormality in cervical spine. No evidence of acute intracranial abnormality or hemorrhage. Right occipital skull fracture, acute versus chr onic. Clinical correlation is recommended. Impression By: [email or web address] - Deepthi Alfaro RADIOLOGY - XR L-SPINE 2/3 VIEWS 08/146 Report Impression - Status: SIGNED Entered: 08/14/2022 4935 Impression: No acute osseous findings. Lower lumbar spondylo sis. Impression By: [email or web address] - Deepthi Ponce Re-Evaluation MDM Free Text MDM Notes Free Text MDM Notes Differential diagnosis includes but is n ot limited to intracranial hemorrhage, hypoglycemia, alcohol intoxication, medi cation side effect. The patient smells of alcohol. She arrived with a cervical collar i n place. Re-Evaluation/Progress #1 Text/Dict Note The patient removed her c-collar. I expl ained that she should keep it in place until the results of her CT are available and ve rbally agreed to the plan. Time of Re-Eval 0000 Re-Evaluation/Progress #2 Text/Dict Note Patient states she does not want to stay in the hospital. She does not want to be transferred to [place] [facility] She would prefer to leave AGAINST MEDICAL ADVICE. Unfortunately, the patient's alcohol level hemolyzed. She is alert and oriented x3 however her words are slurred and she cannot ambulate with a steady gait. I explained the risk of leaving AGAINST MEDICAL ADVICE including infection, disability a nd . She states she does not care and she wants to le ave. This was explained to the patient's boyfriend, Issac, and he signed the patient out AGA INST MEDICAL ADVICE. I encouraged them to return at any time for another evaluation and they verbally agreed to the plan. Time of Eval 010 Patient Discharge Departure Vital Signs/Condition Vital Signs First Documented: Result Date Time Pulse Ox 95 08/14 2252 B/P 129/76 / 2252 B/P Mean 93 08/142 O2 Delivery Room air 08/15 2251 Temp 36.4 08/142 Pulse 80 08/142 Resp 17 08/15 2251 Last Documented: Result Date Time Pulse Ox 95 08/14 2252 B/P 129/76 08/14 2252 B/P Mean 93 08/142 O2 Delivery Room air 08/15 2251 Temp 36.4 08/142 Pulse 80 08/15 2251 Resp 17 08/15 2251 All vital signs available at the time of this en try have been reviewed. Clinical Impression Clinical Impression Primary Impression: Fall Secondary Impressions: Left against medical advi ce, Occipital bone fracture Disposition Decision Transfer )( Request Time 000 )( Request Date 08/15/22 Call Returned Time 36 Spoke with: Attending physician Receiving [facility] Transfer Accepted Yes Accepted by: Dr. Davis )( Acceptance Time 36 )( Acceptance Date 08/15/22 Transfer Reason Higher level of care Patient Status Stable for transfer Patient Informed Yes Other )( Time 108 )( Date 08/15/22 Against Medical Advice Yes Critical Care Time Spent (minutes): 35 CC Note 1 Total critical care time [35 ] minutes. Total critical care time documented does not include time spent on separately billed proc edures or the services of residents, students, nurses or physician assista nts. I personally saw and examined the patient. I have reviewed all diagno stic interpretations and treatment plans as written. I was present for the toribio portions of any procedures performed and the inclusive time noted in any critical care statement. Critical care time includes patient m anagement by me, time spent at the patients bedside, time to review lab and imaging results, discussing patient care, documentation in the medical record, and time spent with the f amily or caregiver. at 0130 [facility] #: [id number] END OF REPORT"
--- NOTE | 2022-11-15 22:51 | EDPHYS ---
Physician Documentation [facility] Name: Kari Ansari Age: 47 yrs Sex: Female : 1975 Arrival Date: 11/15/2022 Time: 22:32 Bed 11 Private MD: [facility] ED Physician Yves Russ HPI: 11/16 01:03 This 47 yrs old Female presents to ER via Ambulatory with complaints of Toothache. sb4 01:03 The patient presents with broken tooth/teeth. The problem is located in the tongue and sb4 lower left second molar. Onset: The symptoms/episode began/occurred gradually. Duration: The symptoms are intermittent. patient states that she has a known cracked molar but believes it has recently gotten worse. she says her tongue has been rubbing against it and now her tongue has an abrasion. she has a dentist appt on October 25. she appears intoxicated during examination, very restless. Historical: - Allergies: 11/15 22:41 Iodine; bp - Home Meds: 22:41 Hydrochlorothiazide Oral [Active]; Alprazolam Oral [Active]; Ambien Oral [Active]; bp Metoprolol Tartrate Oral [Active]; - PMHx: 22:41 Anemia; Anxiety; Hypertension; bp - Immunization history:: Adult Immunizations up to date. - Social history:: Smoking status: unknown. ROS: 11/16 01:03 Constitutional: Negative for fever, chills, and weight loss. sb4 ENT: Positive for dental pain, Teeth pain tongue pain. All other systems are negative. Exam: 01:03 Constitutional: This is a well developed, well nourished patient who is awake, alert, sb4 and in no acute distress. 01:03 ENT: Dental exam: dental caries, diffusely, fractured teeth are noted, specifically the lower left second molar (#18), abrasion noted to left lateral tongue. 01:03 Psych: restless, possibly intoxicated. Vital Signs: 11/15 22:40 BP 169 / 74; Pulse 79; Resp 20; Temp 98; Pulse Ox 100% ; bp 23:13 Weight 76.2 kg; pf1 MDM: 22:37 Patient medically screened. sb4 11/16 01:03 Differential diagnosis: dental caries, dental abscess, aphthous ulcers, sb4 gingivostomatitis. Data reviewed: vital signs, nurses notes, and as a result, I will discharge patient. Counseling: I had a detailed discussion with the patient and/or guardian regarding: the historical points, exam findings, and any diagnostic results supporting the discharge/admit diagnosis, the need for outpatient follow up, a dentist. Administered Medications: 11/15 23:20 Drug: HYDROcodone-acetaminophen PO 5 mg-325 mg 1 tabs Route: PO; pf1 23:25 Follow up: Response: No adverse reaction; Marked relief of symptoms; Pain is decreased; pf1 RASS: Alert and Calm (0) Disposition: 11/16 02:41 Co-signature as Attending Physician, Yves Russ MD I agree with the assessment sp4 and plan of care. I reviewed the patient's care provided by the Advanced Practice Provider and agree with the diagnosis and treatment plan. Disposition Summary: 11/15/22 22:51 Discharge Ordered Location: Home sb4 Problem: an ongoing problem sb4 Symptoms: are unchanged sb4 Condition: Stable sb4 Diagnosis - Other disturbances of oral epithelium, including tongue sb4 - Dental caries, unspecified sb4 Followup: sb4 - With: Private Physician - When: 2 - 3 days - Reason: Recheck today's complaints, Continuance of care, Re-evaluation by your physician Discharge Instructions: - Discharge Summary Sheet sb4 - Dental Caries, Adult sb4 - Dental Pain, [id number] sb4 Forms: - Medication Reconciliation Form sb4 - Thank You Letter sb4 - Antibiotic Education sb4 - Prescription Opioid Use sb4 - Patient Portal Instructions sb4 Prescriptions: - Amoxicillin 875 mg Oral Tablet - take 1 tablet by ORAL route every 12 hours for 10 days; 20 tablet; Refills: 0, sb4 Product Selection Permitted - Ibuprofen 600 mg Oral Tablet - take 1 tablet by ORAL route every 6 hours As needed take with food; 30 tablet; sb4 Refills: 0, Product Selection Permitted - Medrol (Octavio) 4 mg Oral Tablets, Dose Pack - take 1 tablet by ORAL route as directed - follow package instructions; 1 sb4 packet; Refills: 0, Product Selection Permitted Signatures: Nazario Vela RN RN bp Brown, Sophia, PA-C PA-C sb4 Radha Shields RN RN pf1 Potepalov, Yves, MD MD sp4
--- NOTE | 2022-11-15 22:51 | ER ---
Nurse's Notes [facility] Name: Kari Ansari Age: 47 yrs Sex: Female : 1975 Arrival Date: 11/15/2022 Time: 22:32 Bed 11 Private MD: Rc Taylor Diagnosis: Other disturbances of oral epithelium, including tongue;Dental caries, unspecified Presentation: 11/15 22:40 Chief complaint: Patient states: FRACTURED LEFT LOWER MOLAR x1 WK AGO. Coronavirus bp screen: At this time, the client does not indicate any symptoms associated with coronavirus-19. Ebola Screen: No symptoms or risks identified at this time. Initial Sepsis Screen: Does the patient meet any 2 criteria? No. Patient's initial sepsis screen is negative. Does the patient have a suspected source of infection? No. Patient's initial sepsis screen is negative. Risk Assessment: Do you want to hurt yourself or someone else? Patient reports no desire to harm self or others. Onset of symptoms is unknown. 22:40 Method Of Arrival: Ambulatory bp 22:40 Acuity: LASHAUN 5 bp Triage Assessment: 22:41 General: Appears distressed, uncomfortable, Behavior is cooperative, appropriate for bp age, agitated, anxious. Pain: Complains of pain in mouth. EENT: Reports pain in mouth. Neuro: No deficits noted. Cardiovascular: No deficits noted. Respiratory: No deficits noted. GI: No signs and/or symptoms were reported involving the gastrointestinal system. : No signs and/or symptoms were reported regarding the genitourinary system. Derm: No deficits noted. Musculoskeletal: No deficits noted. Historical: - Allergies: 22:41 Iodine; bp - Home Meds: 22:41 Hydrochlorothiazide Oral [Active]; Alprazolam Oral [Active]; Ambien Oral [Active]; bp Metoprolol Tartrate Oral [Active]; - PMHx: 22:41 Anemia; Anxiety; Hypertension; bp - Immunization history:: Adult Immunizations up to date. - Social history:: Smoking status: unknown. Screenin:[facility] ED Fall Risk Assessment (Adult) History of falling in the last 3 months, pf1 including since admission No falls in past 3 months (0 pts) Confusion or Disorientation No (0 pts) Intoxicated or Sedated No (0 pts) Impaired Gait No (0 pts) Mobility Assist Device Used No (0 pt) Altered Elimination No (0 pt) Score/Fall Risk Level 0 - 2 = Low Risk Oriented to surroundings, Maintained a safe environment, Educated pt \T\ family on fall prevention, incl call for assistance when getting out of bed, Assessed \T\ reinforced patient's understanding of fall precautions, Provided non-skid footwear, Hourly rounding (assess needs \T\ fall precautionary measures) done, Used ambulatory aids as needed (educated on \T\ assisted with), Used gait belt as appropriate. Abuse screen: Denies threats or abuse. Nutritional screening: No deficits noted. Tuberculosis screening: No symptoms or risk factors identified. Assessment: 22:30 General: Appears in no apparent distress. uncomfortable, well groomed, well developed, pf1 Behavior is calm, cooperative, appropriate for age, quiet. 22:30 Pain: Complains of pain in mouth. Neuro: No deficits noted. Level of Consciousness is pf1 awake, alert, obeys commands, Oriented to person, place, time, situation. Cardiovascular: No deficits noted. Capillary refill < 3 seconds Patient's skin is warm and dry. Respiratory: No deficits noted. Airway is patent Respiratory effort is even, unlabored, Respiratory pattern is regular, symmetrical. GI: No deficits noted. No signs and/or symptoms were reported involving the gastrointestinal system. : No deficits noted. No signs and/or symptoms were reported regarding the genitourinary system. EENT: Reports pain in left jaw. Derm: No deficits noted. No signs and/or symptoms reported regarding the dermatologic system. 23:35 Reassessment: DC HOME AMBULATORY. bp Vital Signs: 22:40 BP 169 / 74; Pulse 79; Resp 20; Temp 98; Pulse Ox 100% ; bp 23:13 Weight 76.2 kg; pf1 ED Course: 22:34 Patient arrived in ED. mr 22:35 Rc Taylor MD is Private Physician. mr 22:37 Viky Montelongo PA-C is [facility]. sb4 22:37 Yves Russ MD is Attending Physician. sb4 22:41 Triage completed. bp 22:41 Arm band placed on. bp 23:30 No provider procedures requiring assistance completed. Patient did not have IV access pf1 during this emergency room visit. 23:35 Patient has correct armband on for positive identification. bp 23:36 Provided Education on: N/A. bp Administered Medications: 23:20 Drug: HYDROcodone-acetaminophen PO 5 mg-325 mg 1 tabs Route: PO; pf1 23:25 Follow up: Response: No adverse reaction; Marked relief of symptoms; Pain is decreased; pf1 RASS: Alert and Calm (0) Medication: 23:35 VIS not applicable for this client. bp Outcome: 22:51 Discharge ordered by MD. rocha 23:35 Discharged to home ambulatory. bp 23:35 Condition: stable 23:35 Discharge instructions given to patient, Instructed on discharge instructions, follow up and referral plans. medication usage, Demonstrated understanding of instructions, follow-up care, medications, Prescriptions given X 3. 23:36 Patient left the ED. bp Signatures: Cleo Rubin Brian, RN RN Viky Lebron, PA-C PA-C sb4 Radha Shields RN RN pf1
[2022-11-15] MEDS ORDERED: HYDROCODONE/APAP 5/325 MG TAB ONE (23:27)
[2022-11-15 23:54] VITALS: BP 169/74; TEMP 98; O2SAT 100
== END 2022-11-15 23:36 | disposition home or self-care (01) ==
LOC: ER 22:32
DX: K02.9 Dental caries, unspecified (principal); K13.29 Other disturbances of oral epithelium, including tongue
CPT/HCPCS: 99283